=== PATIENT | female | born 1945 | race Caucasian/White ===

== ENCOUNTER 2018-08-30 13:37 | Inpatient (IN) ==
[2018-08-30 15:55] LABS: Basophils # 0.1 10*3/uL (0.0-0.2); Basophils % 0.7 % (0.0-0.8); Eosinophils # 0.1 10*3/uL (0.0-0.87); Eosinophils % 0.8 % (0.00-10.9); Hematocrit 41.2 VOL% (35.7-47.0); Hemoglobin 13.4 GM/DL (12.0-16.0); Immature Granulocytes % 0.6 %; Lymphocytes # 2.6 10*3/uL (1.4-4.0); Lymphocytes % 15.7 % (21.3-54.2); Mean Corpuscular HGB Conc 32.5 GM/DL (32-36); Mean Corpuscular Volume 80.9 FL (87-102); Mean Platelet Volume 11.5 FL (9.6-12.0); Monocytes % 8.7 % (1.7-12.7); Neutrophils % 73.5 % (38.7-73.9); Platelet Count 399 T/CUMM (130-400); Red Blood Count 5.09 MC/CUMM (3.8-5.5); Red Cell Distribution Width 13.3 % (9.3-17.3); White Blood Count 16.3 T/CUMM (4-12)
[2018-08-30 16:09] LABS: Albumin 3.6 G/DL (3.4-5.0); Bilirubin,Total 0.6 MG/DL (0.2-1.0); Calcium 8.9 MG/DL (8.5-10.1); Total Protein 6.5 G/DL (6.4-8.3)
[2018-08-30 16:40] LABS: Apearance,Urine Slightly Hazy (Clear); Bacteria,Urine Occasional /HPF (Few); Blood, Urine Negative (Negative); Glucose,Urine (UA) Negative (Negative); Hyaline Casts,Urine 11 /LPF (0-3); Ketones,Urine 20 mg/dL (Negative); Mucus,Urine Occasional /LPF (Occasional); Nitrite,Urine Negative (Negative); Protein,Urine >=500 MG/DL; Squamous Epithelial Cell,Urine Occasional /HPF (0-10); Urine Specific Gravity 1.022 (1.001-1.035); Urine Urobilinogen < 2.0 EU/DL (0.2-1.0); WBC,Urine 2 /HPF (0-6)
[2018-08-30 16:46] LABS: Bilirubin,Urine Small mg/dL (Negative); Urine Color Yellow (Yellow)
[2018-08-30] MEDS ORDERED: DEXTROSE 50% 25 GM/50 ML VIAL IV PRN ×3 (18:47→20:09)
[2018-08-30] MEDS ORDERED: GLUCAGON 1 MG VIAL IM PRN ×3 (18:47→20:09)
[2018-08-30] MEDS: ENOXAPARIN 40 MG/0.4 ML SYRINGE SUBCUT SCH (22:25)
[2018-08-30] MEDS: GABAPENTIN 300 MG CAPSULE PO SCH (22:25)
[2018-08-30] MEDS: PRAMIPEXOLE 1 MG TABLET PO SCH (22:25)
[2018-08-30] MEDS: INSULIN LISPRO 100 UNIT/ML SUBCUT SCH (22:26)
[2018-08-30] MEDS: DEXTROSE 5% NACL 0.45% 1,000 ML IV SCH (22:28)
[2018-08-31 05:49] LABS: Basophils # 0.1 10*3/uL (0.0-0.2); Basophils % 0.8 % (0.0-0.8); Eosinophils # 0.2 10*3/uL (0.0-0.87); Eosinophils % 1.7 % (0.00-10.9); Hemoglobin 11.1 GM/DL (12.0-16.0); Immature Granulocytes % 0.7 %; Immature Granulocytes Absolute 0.08 #; Lymphocytes # 2.1 10*3/uL (1.4-4.0); Lymphocytes % 19.3 % (21.3-54.2); Mean Corpuscular HGB Conc 31.7 GM/DL (32-36); Mean Corpuscular Volume 82.5 FL (87-102); Monocytes % 9.9 % (1.7-12.7); Neutrophils % 67.6 % (38.7-73.9); Platelet Count 334 T/CUMM (130-400); Red Blood Count 4.24 MC/CUMM (3.8-5.5); Red Cell Distribution Width 13.2 % (9.3-17.3); White Blood Count 10.7 T/CUMM (4-12)
[2018-08-31 06:30] LABS: Alanine Aminotransferase 14 U/L (13-56); Albumin 2.7 G/DL (3.4-5.0); Alkaline Phosphatase 72 U/L (45-117); Aspartate Amino Transferase 9 U/L (0-37); Bilirubin,Total < 0.39 MG/DL (0.2-1.0); Blood Urea Nitrogen 30 MG/DL (7-18); Calcium 8.1 MG/DL (8.5-10.1); Glucose 303 MG/DL (74-106); Osmolality,Calculated 291.7 MOS/KG (273-304); Total Protein 5.5 G/DL (6.4-8.3)
[2018-08-31] MEDS: DEXTROSE 5% NACL 0.45% 1,000 ML IV SCH ×2 (06:43→16:17)
[2018-08-31] MEDS ORDERED: LEVOTHYROXINE 125 MCG TABLET PO SCH (07:00)
[2018-08-31 08:16] LABS: Free T4 (Free Thyroxine) 0.74 NG/DL (0.76-1.46)
[2018-08-31] MEDS: INSULIN LISPRO 100 UNIT/ML SUBCUT SCH ×4 (09:47→21:04)
[2018-08-31] MEDS ORDERED: ALBUTEROL 2.5 MG/3 ML NEB RESP TX PRN (09:48)
[2018-08-31] MEDS: ASPIRIN CHEW 81 MG TABLET PO SCH (09:51)
[2018-08-31] MEDS: POTASSIUM CHLORIDE 20 MEQ TABLET PO PRN ×3 (09:52→16:13)
[2018-08-31] MEDS: amLODIPine 10 MG TABLET PO SCH (09:52)
[2018-08-31] MEDS: GABAPENTIN 300 MG CAPSULE PO SCH ×4 (09:52→20:22)
[2018-08-31] MEDS: MONTELUKAST 10 MG TABLET PO SCH (09:52)
[2018-08-31] MEDS: ESCITALOPRAM 10 MG TABLET PO SCH (09:52)
[2018-08-31] MEDS: cefTRIAXone 1,000 MG in SYRINGE 1 EACH IV SCH (11:15)
[2018-08-31] MEDS: AZITHROMYCIN INJ 500 MG in SODIUM CHLORIDE 0.9% 250 ML IV SCH (11:15)
[2018-08-31] MEDS: ONDANSETRON 4 MG/2 ML VIAL IV PRN ×2 (12:42→18:01)
[2018-08-31] MEDS: ALBUTEROL/IPRATROPIUM 3 ML NEB RESP TX SCH ×2 (13:20→18:54)
[2018-08-31] MEDS: ENOXAPARIN 40 MG/0.4 ML SYRINGE SUBCUT SCH (20:21)
[2018-08-31] MEDS: PRAMIPEXOLE 1 MG TABLET PO SCH (20:21)
[2018-09-01] MEDS: DEXTROSE 5% NACL 0.45% 1,000 ML IV SCH ×3 (00:20→22:01)
[2018-09-01] MEDS: ALBUTEROL/IPRATROPIUM 3 ML NEB RESP TX SCH ×4 (01:30→19:45)
[2018-09-01 04:29] LABS: Basophils # 0.1 10*3/uL (0.0-0.2); Basophils % 0.9 % (0.0-0.8); Eosinophils # 0.5 10*3/uL (0.0-0.87); Eosinophils % 4.8 % (0.00-10.9); Hematocrit 36.3 VOL% (35.7-47.0); Hemoglobin 11.4 GM/DL (12.0-16.0); Immature Granulocytes % 0.7 %; Immature Granulocytes Absolute 0.07 #; Lymphocytes # 2.8 10*3/uL (1.4-4.0); Lymphocytes % 29.6 % (21.3-54.2); Mean Corpuscular HGB Conc 31.4 GM/DL (32-36); Mean Corpuscular Volume 82.9 FL (87-102); Mean Platelet Volume 10.9 FL (9.6-12.0); Monocytes % 9.8 % (1.7-12.7); Neutrophils % 54.2 % (38.7-73.9); Platelet Count 302 T/CUMM (130-400); Red Blood Count 4.38 MC/CUMM (3.8-5.5); Red Cell Distribution Width 13.4 % (9.3-17.3); White Blood Count 9.4 T/CUMM (4-12)
[2018-09-01 04:54] LABS: Calcium 8.1 MG/DL (8.5-10.1); Osmolality,Calculated 287.3 MOS/KG (273-304)
[2018-09-01 04:57] LABS: Alanine Aminotransferase 18 U/L (13-56); Albumin 2.8 G/DL (3.4-5.0); Alkaline Phosphatase 77 U/L (45-117); Aspartate Amino Transferase 11 U/L (0-37); Bilirubin,Total < 0.39 MG/DL (0.2-1.0); Blood Urea Nitrogen 26 MG/DL (7-18); Calcium 8.1 MG/DL (8.5-10.1); Glucose 148 MG/DL (74-106); Osmolality,Calculated 288.3 MOS/KG (273-304); Total Protein 5.7 G/DL (6.4-8.3)
[2018-09-01] MEDS: LEVOTHYROXINE 137 MCG TABLET PO SCH (06:17)
[2018-09-01] MEDS: INSULIN LISPRO 100 UNIT/ML SUBCUT SCH ×4 (09:40→20:50)
[2018-09-01] MEDS: ONDANSETRON 4 MG/2 ML VIAL IV PRN ×3 (09:40→17:16)
[2018-09-01] MEDS: GABAPENTIN 300 MG CAPSULE PO SCH ×4 (09:41→20:49)
[2018-09-01] MEDS: ESCITALOPRAM 10 MG TABLET PO SCH (09:41)
[2018-09-01] MEDS: ASPIRIN CHEW 81 MG TABLET PO SCH (09:41)
[2018-09-01] MEDS: MONTELUKAST 10 MG TABLET PO SCH (09:41)
[2018-09-01] MEDS: amLODIPine 10 MG TABLET PO SCH (09:41)
[2018-09-01] MEDS: cefTRIAXone 1,000 MG in SYRINGE 1 EACH IV SCH (10:21)
[2018-09-01] MEDS: AZITHROMYCIN INJ 500 MG in SODIUM CHLORIDE 0.9% 250 ML IV SCH (10:21)
[2018-09-01] MEDS: CLORAZEPATE 3.75 MG TABLET PO SCH ×2 (16:03→20:49)
[2018-09-01] MEDS: ENOXAPARIN 40 MG/0.4 ML SYRINGE SUBCUT SCH (20:49)
[2018-09-01] MEDS: PRAMIPEXOLE 1 MG TABLET PO SCH (20:49)
[2018-09-02] MEDS: ALBUTEROL/IPRATROPIUM 3 ML NEB RESP TX SCH ×4 (00:14→19:45)
[2018-09-02] MEDS: LEVOTHYROXINE 137 MCG TABLET PO SCH (05:35)
[2018-09-02] MEDS: ONDANSETRON 4 MG/2 ML VIAL IV PRN ×3 (05:35→16:06)
[2018-09-02 06:21] LABS: Calcium 8.5 MG/DL (8.5-10.1); Osmolality,Calculated 292.5 MOS/KG (273-304)
[2018-09-02] MEDS: INSULIN LISPRO 100 UNIT/ML SUBCUT SCH ×5 (08:19→21:07)
[2018-09-02] MEDS: AZITHROMYCIN 250 MG TABLET PO SCH (08:21)
[2018-09-02] MEDS: MONTELUKAST 10 MG TABLET PO SCH (08:21)
[2018-09-02] MEDS: CLORAZEPATE 3.75 MG TABLET PO SCH ×2 (08:21→20:48)
[2018-09-02] MEDS: ESCITALOPRAM 10 MG TABLET PO SCH (08:21)
[2018-09-02] MEDS: GABAPENTIN 300 MG CAPSULE PO SCH ×4 (08:22→20:48)
[2018-09-02] MEDS: ASPIRIN CHEW 81 MG TABLET PO SCH (08:22)
[2018-09-02] MEDS: amLODIPine 10 MG TABLET PO SCH (08:22)
[2018-09-02] MEDS: cefTRIAXone 1,000 MG in SYRINGE 1 EACH IV SCH (10:09)
[2018-09-02] MEDS: LOSARTAN 50 MG TABLET PO SCH (10:10)
[2018-09-02] MEDS: POTASSIUM CHLORIDE 10 MEQ TABLET PO SCH (10:10)
[2018-09-02] MEDS: DEXTROSE 5% NACL 0.45% 1,000 ML IV SCH (11:15)
[2018-09-02] MEDS ORDERED: INSULIN GLARGINE 100 UNIT/ML SUBCUT SCH (14:30)
[2018-09-02] MEDS ORDERED: INSULIN LISPRO 100 UNIT/ML SUBCUT SCH (16:30)
[2018-09-02] MEDS: ENOXAPARIN 40 MG/0.4 ML SYRINGE SUBCUT SCH (20:48)
[2018-09-02] MEDS: PRAMIPEXOLE 1 MG TABLET PO SCH (20:48)
[2018-09-03] MEDS: ALBUTEROL/IPRATROPIUM 3 ML NEB RESP TX SCH ×2 (00:50→06:50)
[2018-09-03 05:57] LABS: Calcium 8.5 MG/DL (8.5-10.1); Osmolality,Calculated 280.5 MOS/KG (273-304)
[2018-09-03] MEDS: LEVOTHYROXINE 137 MCG TABLET PO SCH (06:16)
[2018-09-03] MEDS: ONDANSETRON 4 MG/2 ML VIAL IV PRN (07:45)
[2018-09-03] MEDS: INSULIN LISPRO 100 UNIT/ML SUBCUT SCH ×4 (07:46→13:05)
[2018-09-03] MEDS: CLORAZEPATE 3.75 MG TABLET PO SCH (09:20)
[2018-09-03] MEDS: ESCITALOPRAM 10 MG TABLET PO SCH (09:21)
[2018-09-03] MEDS: MONTELUKAST 10 MG TABLET PO SCH (09:21)
[2018-09-03] MEDS: POTASSIUM CHLORIDE 10 MEQ TABLET PO SCH (09:21)
[2018-09-03] MEDS: AZITHROMYCIN 250 MG TABLET PO SCH (09:22)
[2018-09-03] MEDS: POTASSIUM CHLORIDE 20 MEQ TABLET PO PRN (09:22)
[2018-09-03] MEDS: GABAPENTIN 300 MG CAPSULE PO SCH (09:22)
[2018-09-03] MEDS: ASPIRIN CHEW 81 MG TABLET PO SCH (09:23)
[2018-09-03] MEDS: amLODIPine 10 MG TABLET PO SCH (09:23)
[2018-09-03] MEDS: LOSARTAN 50 MG TABLET PO SCH (09:23)
[2018-09-03] MEDS: cefTRIAXone 1,000 MG in SYRINGE 1 EACH IV SCH (09:24)
[2018-09-03] MEDS ORDERED: CLORAZEPATE 3.75 MG TABLET PO PRN (10:53)
[2018-09-03 12:11] VITALS: BP 136/91
== END 2018-09-03 13:20 | disposition home health service (06) | DRG 682 ==
LOC: N.ED 13:37 → SUATTDRO 17:45 → N.EDINP 17:45 → N.2E 19:10
PROVIDERS: ADMIT Internal Medicine Nephrology; ATTEND Internal Medicine

== ENCOUNTER 2019-08-03 11:19 | Inpatient (IN) ==
[2019-08-03] MEDS ORDERED: HYDROXYCHLOROQUINE 200 MG TABLET PO STA (12:13)
[2019-08-03] MEDS ORDERED: AZITHROMYCIN 250 MG TABLET PO STA (12:13)
[2019-08-03 12:57] LABS: Hematocrit 31.4 VOL% (35.7-47.0); Hemoglobin 9.8 GM/DL (12.0-16.0); Immature Granulocytes % 0.4 %; Immature Granulocytes Absolute 0.02 #; Lymphocytes # 0.4 10*3/uL (1.4-4.0); Lymphocytes % 9.1 % (21.3-54.2); Mean Corpuscular HGB Conc 31.2 GM/DL (32-36); Mean Corpuscular Volume 82.6 FL (87-102); Mean Platelet Volume 11.3 FL (9.6-12.0); Monocytes % 6.9 % (1.7-12.7); Neutrophils % 83.6 % (38.7-73.9); Platelet Count 291 T/CUMM (130-400); Red Cell Distribution Width 16.9 % (9.3-17.3); White Blood Count 4.5 T/CUMM (4-12)
[2019-08-03] MEDS ORDERED: ACETAMINOPHEN 500 MG TABLET PO STA (13:00)
[2019-08-03] MEDS ORDERED: ACETAMINOPHEN 500 MG TABLET ONE (13:07)
[2019-08-03 13:19] LABS: Alanine Aminotransferase 155 U/L (13-56); Albumin 1.4 G/DL (3.4-5.0); Alkaline Phosphatase 62 U/L (45-117); Amylase 13 U/L (25-115); Aspartate Amino Transferase 125 U/L (0-37); Blood Urea Nitrogen 58 MG/DL (7-18); Calcium 7.3 MG/DL (8.5-10.1); Estimated Glom Filtration Rate 30 ML/MIN; Ferritin 365.7 ng/ml (8-252); Glucose 399 MG/DL (74-106); Osmolality,Calculated 285.4 MOS/KG (273-304); Total Protein 5.7 G/DL (6.4-8.3)
[2019-08-03 13:20] LABS: Troponin I 0.114 NG/ML (0.00-0.045)
[2019-08-03 13:31] LABS: Apearance,Urine CLOUDY (Clear); Bacteria,Urine Many /HPF (Few); Bilirubin,Urine Negative (Negative); Blood, Urine Small mg/dL (Negative); Glucose,Urine (UA) 50 mg/dL (Negative); Ketones,Urine 5 mg/dL (Negative); Nitrite,Urine Negative (Negative); Protein,Urine 100 MG/DL; RBC,Urine 24 /HPF (0-4); Urine Color Amber (Yellow); Urine Specific Gravity 1.017 (1.001-1.035); Urine Urobilinogen < 2.0 EU/DL (0.2-1.0); WBC,Urine 1097 /HPF (0-6)
[2019-08-03 13:36] LABS: INR 1.2; PT Patient Result 12.5 SECS (9.8-11.9)
[2019-08-03] MEDS ORDERED: DEXTROSE 10% 250 ML BAG IV PRN (14:14)
[2019-08-03] MEDS ORDERED: guaiFENesin/DM ER 600-30 MG TABLET PO PRN (14:14)
[2019-08-03 14:42] LABS: Band Neutrophils 2 % (0-10); Lymphocytes 5 % (20-55); Platelet Estimate Normal; Segmented Neutrophils 90 % (50-85); Total Cells Counted 100
[2019-08-03 14:58] LABS: VLDL CHOLESTEROL 41.2 MG/DL
[2019-08-03] MEDS ORDERED: cefTRIAXone 1,000 MG in SYRINGE 1 EACH IV SCH (15:00)
[2019-08-03] MEDS: SODIUM CHLORIDE 0.9% 1,000 ML IV SCH (15:28)
[2019-08-03] MEDS: INSULIN REGULAR 100 UNIT/ML SUBCUT SCH ×2 (16:13→21:59)
[2019-08-03] MEDS: CEFEPIME 1,000 MG in SODIUM CHLORIDE 0.9% 100 ML IV SCH (18:28)
[2019-08-03] MEDS: ENOXAPARIN 40 MG/0.4 ML SYRINGE SUBCUT SCH (21:55)
[2019-08-03] MEDS: ONDANSETRON 4 MG/2 ML VIAL IV PRN (21:55)
[2019-08-03] MEDS: ALBUTEROL INHALER 18 GM INH SCH (22:31)
[2019-08-03] MEDS: traZODone 50 MG TABLET PO PRN (22:32)
[2019-08-04] MEDS: SODIUM CHLORIDE 0.9% 1,000 ML IV SCH ×2 (00:34→20:59)
[2019-08-04] MEDS: ALBUTEROL INHALER 18 GM INH SCH ×4 (00:35→19:12)
[2019-08-04] MEDS: CEFEPIME 1,000 MG in SODIUM CHLORIDE 0.9% 100 ML IV SCH ×4 (01:00→21:00)
[2019-08-04 05:54] LABS: Basophils % 0.3 % (0.0-0.8); Eosinophils # 0.1 10*3/uL (0.0-0.87); Eosinophils % 3.3 % (0.00-10.9); Hematocrit 26.3 VOL% (35.7-47.0); Hemoglobin 7.6 GM/DL (12.0-16.0); Immature Granulocytes % 1.2 %; Immature Granulocytes Absolute 0.04 #; Lymphocytes # 0.5 10*3/uL (1.4-4.0); Lymphocytes % 14.7 % (21.3-54.2); Mean Corpuscular HGB Conc 28.9 GM/DL (32-36); Mean Corpuscular Volume 88.9 FL (87-102); Mean Platelet Volume 10.9 FL (9.6-12.0); Monocytes % 9.6 % (1.7-12.7); Neutrophils % 70.9 % (38.7-73.9); Platelet Count 193 T/CUMM (130-400); Red Blood Count 2.96 MC/CUMM (3.8-5.5); Red Cell Distribution Width 17.2 % (9.3-17.3); White Blood Count 3.3 T/CUMM (4-12)
[2019-08-04 06:11] LABS: Osmolality,Calculated 286.8 MOS/KG (273-304)
[2019-08-04 06:22] LABS: Calcium 5.5 MG/DL (8.5-10.1)
[2019-08-04] MEDS ORDERED: MAGNESIUM SULF RIDER 2 GM in PREMIX 1 EACH IV PRN (08:10)
[2019-08-04] MEDS ORDERED: MAGNESIUM SULF RIDER 4 GM in PREMIX 1 EACH IV PRN (08:10)
[2019-08-04] MEDS ORDERED: HYDROXYCHLOROQUINE 200 MG TABLET PO ONE (09:00)
[2019-08-04 09:26] LABS: Anisocytosis 1+; Band Neutrophils 12 % (0-10); Eosinophils 3 % (0-10); Lymphocytes 14 % (20-55); Macrocytosis 1+; Metamyelocytes 1 %; Myelocytes 3 %; Platelet Estimate Normal; Segmented Neutrophils 63 % (50-85); Total Cells Counted 100
[2019-08-04] MEDS: AZITHROMYCIN 250 MG TABLET PO SCH (09:50)
[2019-08-04] MEDS: INSULIN REGULAR 100 UNIT/ML SUBCUT SCH ×4 (09:50→20:58)
[2019-08-04] MEDS: ONDANSETRON 4 MG/2 ML VIAL IV PRN ×2 (09:50→17:20)
[2019-08-04] MEDS ORDERED: CALCIUM GLUCONATE 1,000 MG in SODIUM CHLORIDE 0.9% 100 ML IV ONE (10:00)
[2019-08-04] MEDS ORDERED: FLUTICASONE 50 MCG NASAL SPRAY 16 GM BOTTLE BOTH NARES PRN (13:30)
[2019-08-04] MEDS ORDERED: NON-FORMULARY MEDICATION (Albuterol Sulfate 2 PUFF) INH PRN (13:30)
[2019-08-04] MEDS: GABAPENTIN 300 MG CAPSULE PO SCH ×2 (17:20→20:57)
[2019-08-04] MEDS: INSULIN GLARGINE 100 UNIT/ML SUBCUT SCH (18:37)
[2019-08-04] MEDS: ENOXAPARIN 40 MG/0.4 ML SYRINGE SUBCUT SCH (20:56)
[2019-08-04] MEDS: PANTOPRAZOLE 40 MG TABLET PO SCH (20:57)
[2019-08-04] MEDS: AMITRIPTYLINE 25 MG TABLET PO SCH (20:57)
[2019-08-04] MEDS: HYDROXYCHLOROQUINE 200 MG TABLET PO SCH (20:57)
[2019-08-04] MEDS: AZELASTINE NASAL 137 MCG/SPRAY 30 ML BOTTLE BOTH NARES SCH (20:58)
[2019-08-04] MEDS: GLYCOPYRROLATE FORMOTEROL INH SCH (21:02)
[2019-08-05] MEDS: ALBUTEROL INHALER 18 GM INH SCH ×4 (01:00→18:32)
[2019-08-05] MEDS: ONDANSETRON 4 MG/2 ML VIAL IV PRN ×4 (02:12→21:00)
[2019-08-05] MEDS: CEFEPIME 1,000 MG in SODIUM CHLORIDE 0.9% 100 ML IV SCH ×2 (05:00→09:11)
[2019-08-05] MEDS: LEVOTHYROXINE 137 MCG TABLET PO SCH (06:39)
[2019-08-05 07:36] LABS: Calcium 8.1 MG/DL (8.5-10.1); Osmolality,Calculated 280.2 MOS/KG (273-304)
[2019-08-05 07:45] LABS: Basophils % 0.4 % (0.0-0.8); Eosinophils # 0.5 10*3/uL (0.0-0.87); Eosinophils % 10.5 % (0.00-10.9); Hematocrit 33.4 VOL% (35.7-47.0); Immature Granulocytes % 0.7 %; Immature Granulocytes Absolute 0.03 #; Lymphocytes # 0.9 10*3/uL (1.4-4.0); Lymphocytes % 19.8 % (21.3-54.2); Mean Corpuscular HGB Conc 30.8 GM/DL (32-36); Mean Corpuscular Volume 83.1 FL (87-102); Mean Platelet Volume 11.4 FL (9.6-12.0); Monocytes % 8.2 % (1.7-12.7); Neutrophils % 60.4 % (38.7-73.9)
[2019-08-05 07:46] LABS: Red Blood Count 4.02 MC/CUMM (3.8-5.5); White Blood Count 4.5 T/CUMM (4-12)
[2019-08-05 07:47] LABS: Hemoglobin 10.3 GM/DL (12.0-16.0); Platelet Count 267 T/CUMM (130-400)
[2019-08-05 08:04] LABS: Band Neutrophils 6 % (0-10); Eosinophils 14 % (0-10); Lymphocytes 16 % (20-55); Nucleated Red Blood Cells 1 (0-5); Platelet Estimate Normal; Segmented Neutrophils 54 % (50-85); Total Cells Counted 100
[2019-08-05 08:05] LABS: Anisocytosis Slight
[2019-08-05] MEDS: ASPIRIN CHEW 81 MG TABLET PO SCH (08:49)
[2019-08-05] MEDS: AZITHROMYCIN 250 MG TABLET PO SCH (08:49)
[2019-08-05] MEDS: PANTOPRAZOLE 40 MG TABLET PO SCH ×2 (08:50→21:00)
[2019-08-05] MEDS: HYDROXYCHLOROQUINE 200 MG TABLET PO SCH (08:50)
[2019-08-05] MEDS: GABAPENTIN 300 MG CAPSULE PO SCH ×3 (08:50→21:00)
[2019-08-05] MEDS: MONTELUKAST 10 MG TABLET PO SCH (08:50)
[2019-08-05] MEDS: ARIPiprazole 10 MG TABLET PO SCH (08:51)
[2019-08-05] MEDS: PHENOL 1.4% THROAT SPRAY 177 ML BOTTLE PO PRN (08:51)
[2019-08-05] MEDS: ROSUVASTATIN 20 MG TABLET PO SCH (09:03)
[2019-08-05] MEDS: AZELASTINE NASAL 137 MCG/SPRAY 30 ML BOTTLE BOTH NARES SCH ×2 (09:03→22:36)
[2019-08-05] MEDS: GLYCOPYRROLATE FORMOTEROL INH SCH ×2 (09:04→22:37)
[2019-08-05] MEDS: INSULIN REGULAR 100 UNIT/ML SUBCUT SCH ×4 (09:11→22:37)
[2019-08-05] MEDS: INSULIN GLARGINE 100 UNIT/ML SUBCUT SCH (15:24)
[2019-08-05] MEDS: MEROPENEM 500 MG in SODIUM CHLORIDE 0.9% 100 ML IV SCH ×2 (15:24→21:00)
[2019-08-05] MEDS: SODIUM CHLORIDE 0.9% 1,000 ML IV SCH (17:38)
[2019-08-05] MEDS: ENOXAPARIN 40 MG/0.4 ML SYRINGE SUBCUT SCH (21:00)
[2019-08-05] MEDS: AMITRIPTYLINE 25 MG TABLET PO SCH (21:00)
[2019-08-05] MEDS: traZODone 50 MG TABLET PO PRN (21:00)
[2019-08-06] MEDS: ALBUTEROL INHALER 18 GM INH SCH ×4 (00:20→22:01)
[2019-08-06] MEDS: ONDANSETRON 4 MG/2 ML VIAL IV PRN ×3 (00:50→21:57)
[2019-08-06] MEDS: hydrALAZINE 20 MG/1 ML VIAL IV PRN ×2 (03:30→16:35)
[2019-08-06] MEDS: PHENOL 1.4% THROAT SPRAY 177 ML BOTTLE PO PRN (03:30)
[2019-08-06] MEDS: MEROPENEM 500 MG in SODIUM CHLORIDE 0.9% 100 ML IV SCH ×3 (06:00→21:58)
[2019-08-06] MEDS: LEVOTHYROXINE 137 MCG TABLET PO SCH (06:00)
[2019-08-06 06:10] LABS: Basophils % 0.1 % (0.0-0.8); Eosinophils # 0.7 10*3/uL (0.0-0.87); Eosinophils % 8.5 % (0.00-10.9); Hematocrit 37.1 VOL% (35.7-47.0); Hemoglobin 11.4 GM/DL (12.0-16.0); Immature Granulocytes % 0.4 %; Immature Granulocytes Absolute 0.03 #; Lymphocytes # 0.9 10*3/uL (1.4-4.0); Lymphocytes % 11.4 % (21.3-54.2); Mean Corpuscular HGB Conc 30.7 GM/DL (32-36); Mean Corpuscular Volume 84.1 FL (87-102); Mean Platelet Volume 10.6 FL (9.6-12.0); Monocytes % 6.5 % (1.7-12.7); Neutrophils % 73.1 % (38.7-73.9); Platelet Count 307 T/CUMM (130-400); Red Blood Count 4.41 MC/CUMM (3.8-5.5); Red Cell Distribution Width 16.7 % (9.3-17.3)
[2019-08-06 06:23] LABS: Calcium 7.7 MG/DL (8.5-10.1)
[2019-08-06 06:35] LABS: Band Neutrophils 2 % (0-10); Eosinophils 7 % (0-10); Hypochromasia 1+; Lymphocytes 8 % (20-55); Microcytosis 1+; Ovalocytes Slight; Segmented Neutrophils 77 % (50-85); Total Cells Counted 100
[2019-08-06 06:36] LABS: Platelet Estimate Normal
[2019-08-06] MEDS: ASPIRIN CHEW 81 MG TABLET PO SCH (08:17)
[2019-08-06] MEDS: GABAPENTIN 300 MG CAPSULE PO SCH ×3 (08:17→21:57)
[2019-08-06] MEDS: PANTOPRAZOLE 40 MG TABLET PO SCH ×2 (08:18→21:57)
[2019-08-06] MEDS: ROSUVASTATIN 20 MG TABLET PO SCH (08:18)
[2019-08-06] MEDS: MONTELUKAST 10 MG TABLET PO SCH (08:18)
[2019-08-06] MEDS: BENZONATATE 100 MG CAPSULE PO PRN (08:18)
[2019-08-06] MEDS: GLYCOPYRROLATE FORMOTEROL INH SCH ×2 (08:18→21:57)
[2019-08-06] MEDS: AZELASTINE NASAL 137 MCG/SPRAY 30 ML BOTTLE BOTH NARES SCH ×2 (08:18→22:50)
[2019-08-06] MEDS: AZITHROMYCIN 250 MG TABLET PO SCH (09:09)
[2019-08-06] MEDS: ARIPiprazole 10 MG TABLET PO SCH (09:09)
[2019-08-06] MEDS: INSULIN REGULAR 100 UNIT/ML SUBCUT SCH ×4 (09:30→20:36)
[2019-08-06] MEDS: LOSARTAN 50 MG TABLET PO SCH (11:28)
[2019-08-06] MEDS: INSULIN GLARGINE 100 UNIT/ML SUBCUT SCH (20:36)
[2019-08-06] MEDS: traZODone 50 MG TABLET PO PRN (21:56)
[2019-08-06] MEDS: AMITRIPTYLINE 25 MG TABLET PO SCH (21:57)
[2019-08-06] MEDS: ENOXAPARIN 40 MG/0.4 ML SYRINGE SUBCUT SCH (21:58)
[2019-08-07] MEDS: ALBUTEROL INHALER 18 GM INH SCH ×4 (01:16→21:05)
[2019-08-07] MEDS: ONDANSETRON 4 MG/2 ML VIAL IV PRN ×3 (05:07→21:05)
[2019-08-07] MEDS: MEROPENEM 500 MG in SODIUM CHLORIDE 0.9% 100 ML IV SCH ×3 (05:08→21:45)
[2019-08-07 05:14] LABS: Basophils % 0.4 % (0.0-0.8); Eosinophils # 0.8 10*3/uL (0.0-0.87); Eosinophils % 10.9 % (0.00-10.9); Hematocrit 33.7 VOL% (35.7-47.0); Hemoglobin 10.8 GM/DL (12.0-16.0); Immature Granulocytes % 0.7 %; Immature Granulocytes Absolute 0.05 #; Lymphocytes # 1.3 10*3/uL (1.4-4.0); Lymphocytes % 19.2 % (21.3-54.2); Mean Corpuscular Volume 80.2 FL (87-102); Mean Platelet Volume 10.5 FL (9.6-12.0); Monocytes % 10.2 % (1.7-12.7); Neutrophils % 58.6 % (38.7-73.9); Platelet Count 313 T/CUMM (130-400); Red Cell Distribution Width 16.5 % (9.3-17.3)
[2019-08-07 06:07] LABS: Band Neutrophils 1 % (0-10); Eosinophils 6 % (0-10); Hypochromasia 1+; Lymphocytes 10 % (20-55); Microcytosis 1+; Platelet Estimate Adequate; Segmented Neutrophils 78 % (50-85); Total Cells Counted 100
[2019-08-07] MEDS: LEVOTHYROXINE 137 MCG TABLET PO SCH (06:20)
[2019-08-07] MEDS: INSULIN REGULAR 100 UNIT/ML SUBCUT SCH ×4 (09:09→21:44)
[2019-08-07] MEDS ORDERED: TUBERCULIN SKIN TEST 0.1 ML SYRINGE INTRADERM ONE (09:26)
[2019-08-07] MEDS: GABAPENTIN 300 MG CAPSULE PO SCH ×3 (10:05→21:05)
[2019-08-07] MEDS: ROSUVASTATIN 20 MG TABLET PO SCH (10:05)
[2019-08-07] MEDS: AZITHROMYCIN 250 MG TABLET PO SCH (10:05)
[2019-08-07] MEDS: ASPIRIN CHEW 81 MG TABLET PO SCH (10:05)
[2019-08-07] MEDS: NEBIVOLOL 10 MG TABLET PO SCH (10:05)
[2019-08-07] MEDS: GLYCOPYRROLATE FORMOTEROL INH SCH ×2 (10:05→21:05)
[2019-08-07] MEDS: LOSARTAN 50 MG TABLET PO SCH (10:05)
[2019-08-07] MEDS: MONTELUKAST 10 MG TABLET PO SCH (10:05)
[2019-08-07] MEDS: PANTOPRAZOLE 40 MG TABLET PO SCH ×2 (10:05→21:05)
[2019-08-07] MEDS: ARIPiprazole 10 MG TABLET PO SCH (10:05)
[2019-08-07] MEDS: busPIRone 5 MG TABLET PO PRN ×2 (10:05→21:05)
[2019-08-07] MEDS: AZELASTINE NASAL 137 MCG/SPRAY 30 ML BOTTLE BOTH NARES SCH ×2 (10:14→21:05)
[2019-08-07] MEDS: SODIUM CHLORIDE 0.9% 1,000 ML IV SCH ×2 (10:35→10:52)
[2019-08-07 14:41] LABS: Calcium 7.9 MG/DL (8.5-10.1); Osmolality,Calculated 273.8 MOS/KG (273-304)
[2019-08-07] MEDS: traZODone 50 MG TABLET PO PRN (21:05)
[2019-08-07] MEDS: BENZONATATE 100 MG CAPSULE PO PRN (21:05)
[2019-08-07] MEDS: ENOXAPARIN 40 MG/0.4 ML SYRINGE SUBCUT SCH (21:05)
[2019-08-07] MEDS: AMITRIPTYLINE 25 MG TABLET PO SCH (21:05)
[2019-08-07] MEDS: INSULIN GLARGINE 100 UNIT/ML SUBCUT SCH (21:44)
[2019-08-08] MEDS: ALBUTEROL INHALER 18 GM INH SCH ×4 (01:11→20:00)
[2019-08-08 03:42] LABS: Basophils # 0.1 10*3/uL (0.0-0.2); Basophils % 0.8 % (0.0-0.8); Eosinophils % 0.1 % (0.00-10.9); Hematocrit 26.2 VOL% (35.7-47.0); Hemoglobin 8.5 GM/DL (12.0-16.0); Immature Granulocytes % 5.1 %; Immature Granulocytes Absolute 0.75 #; Lymphocytes # 1.3 10*3/uL (1.4-4.0); Lymphocytes % 8.8 % (21.3-54.2); Mean Corpuscular HGB Conc 32.4 GM/DL (32-36); Mean Corpuscular Volume 84.8 FL (87-102); Mean Platelet Volume 13.2 FL (9.6-12.0); Monocytes % 4.1 % (1.7-12.7); Neutrophils % 81.1 % (38.7-73.9); Platelet Count 277 T/CUMM (130-400); Red Blood Count 3.09 MC/CUMM (3.8-5.5); Red Cell Distribution Width 18.2 % (9.3-17.3); White Blood Count 14.7 T/CUMM (4-12)
[2019-08-08 03:50] LABS: Calcium 9.2 MG/DL (8.5-10.1); Osmolality,Calculated 282.8 MOS/KG (273-304)
[2019-08-08 04:36] LABS: Band Neutrophils 6 % (0-10); Lymphocytes 8 % (20-55); Nucleated Red Blood Cells 2 (0-5); Segmented Neutrophils 77 % (50-85); Total Cells Counted 100
[2019-08-08 04:37] LABS: Hypochromasia 1+; Microcytosis 1+; Platelet Estimate Adequate
[2019-08-08] MEDS: MEROPENEM 500 MG in SODIUM CHLORIDE 0.9% 100 ML IV SCH ×3 (05:10→21:18)
[2019-08-08] MEDS: SODIUM CHLORIDE 0.9% 1,000 ML IV SCH (05:10)
[2019-08-08] MEDS: busPIRone 5 MG TABLET PO PRN ×2 (05:10→18:30)
[2019-08-08] MEDS: LEVOTHYROXINE 137 MCG TABLET PO SCH (06:00)
[2019-08-08] MEDS: INSULIN REGULAR 100 UNIT/ML SUBCUT SCH ×4 (08:10→20:46)
[2019-08-08 08:58] LABS: Albumin 1.5 G/DL (3.4-5.0); Bilirubin,Total 0.5 MG/DL (0.2-1.0); Calcium 7.5 MG/DL (8.5-10.1); Total Protein 6.3 G/DL (6.4-8.3)
[2019-08-08] MEDS ORDERED: SODIUM POLYSTYRENE SULFATE 15 GM/60 ML BOTTLE PO ONE (09:00)
[2019-08-08] MEDS: ARIPiprazole 10 MG TABLET PO SCH (10:52)
[2019-08-08] MEDS: NEBIVOLOL 10 MG TABLET PO SCH (10:52)
[2019-08-08] MEDS: ASPIRIN CHEW 81 MG TABLET PO SCH (10:53)
[2019-08-08] MEDS: MONTELUKAST 10 MG TABLET PO SCH (10:55)
[2019-08-08] MEDS: GABAPENTIN 300 MG CAPSULE PO SCH ×3 (10:55→20:00)
[2019-08-08] MEDS: ONDANSETRON 4 MG/2 ML VIAL IV PRN ×2 (10:55→20:40)
[2019-08-08] MEDS: GLYCOPYRROLATE FORMOTEROL INH SCH ×2 (10:55→20:00)
[2019-08-08] MEDS: LOSARTAN 50 MG TABLET PO SCH (10:55)
[2019-08-08] MEDS: ROSUVASTATIN 20 MG TABLET PO SCH (10:55)
[2019-08-08] MEDS: PANTOPRAZOLE 40 MG TABLET PO SCH ×2 (10:55→20:00)
[2019-08-08] MEDS: POTASSIUM CHLORIDE 20 MEQ TABLET PO PRN ×3 (11:28→17:40)
[2019-08-08] MEDS: ALPRAZolam 0.5 MG TABLET PO PRN ×2 (11:30→20:00)
[2019-08-08] MEDS: AZELASTINE NASAL 137 MCG/SPRAY 30 ML BOTTLE BOTH NARES SCH ×2 (11:33→20:00)
[2019-08-08] MEDS: traZODone 50 MG TABLET PO PRN (20:00)
[2019-08-08] MEDS: BENZONATATE 100 MG CAPSULE PO PRN (20:00)
[2019-08-08] MEDS: AMITRIPTYLINE 25 MG TABLET PO SCH (20:00)
[2019-08-08] MEDS: ENOXAPARIN 40 MG/0.4 ML SYRINGE SUBCUT SCH (20:00)
[2019-08-08] MEDS: PRAMIPEXOLE 1 MG TABLET PO SCH (20:40)
[2019-08-08] MEDS: HydrOXYzine PAMOATE 25 MG CAPSULE PO SCH (20:40)
[2019-08-08] MEDS: INSULIN GLARGINE 100 UNIT/ML SUBCUT SCH (20:40)
[2019-08-09] MEDS: SODIUM CHLORIDE 0.9% 1,000 ML IV SCH ×2 (00:08→20:34)
[2019-08-09] MEDS: ALBUTEROL INHALER 18 GM INH SCH ×4 (00:10→20:59)
[2019-08-09] MEDS: busPIRone 5 MG TABLET PO PRN ×2 (04:10→15:13)
[2019-08-09] MEDS: MEROPENEM 500 MG in SODIUM CHLORIDE 0.9% 100 ML IV SCH ×3 (05:10→20:59)
[2019-08-09] MEDS: LEVOTHYROXINE 137 MCG TABLET PO SCH (06:05)
[2019-08-09] MEDS: ROSUVASTATIN 20 MG TABLET PO SCH (09:05)
[2019-08-09] MEDS: LOSARTAN 50 MG TABLET PO SCH (09:05)
[2019-08-09] MEDS: GLYCOPYRROLATE FORMOTEROL INH SCH ×2 (09:05→20:59)
[2019-08-09] MEDS: ARIPiprazole 10 MG TABLET PO SCH (09:05)
[2019-08-09] MEDS: AZELASTINE NASAL 137 MCG/SPRAY 30 ML BOTTLE BOTH NARES SCH ×2 (09:05→20:59)
[2019-08-09] MEDS: MONTELUKAST 10 MG TABLET PO SCH (09:05)
[2019-08-09] MEDS: ASPIRIN CHEW 81 MG TABLET PO SCH (09:05)
[2019-08-09] MEDS: GABAPENTIN 300 MG CAPSULE PO SCH ×3 (09:05→20:33)
[2019-08-09] MEDS: PANTOPRAZOLE 40 MG TABLET PO SCH ×2 (09:05→20:33)
[2019-08-09] MEDS: NEBIVOLOL 10 MG TABLET PO SCH (09:05)
[2019-08-09] MEDS: ALPRAZolam 0.5 MG TABLET PO PRN ×2 (09:13→20:55)
[2019-08-09] MEDS: INSULIN REGULAR 100 UNIT/ML SUBCUT SCH ×4 (09:16→20:48)
[2019-08-09] MEDS: ENOXAPARIN 40 MG/0.4 ML SYRINGE SUBCUT SCH (20:33)
[2019-08-09] MEDS: PRAMIPEXOLE 1 MG TABLET PO SCH (20:33)
[2019-08-09] MEDS: HydrOXYzine PAMOATE 25 MG CAPSULE PO SCH (20:33)
[2019-08-09] MEDS: AMITRIPTYLINE 25 MG TABLET PO SCH (20:33)
[2019-08-09] MEDS: traZODone 50 MG TABLET PO PRN (20:33)
[2019-08-09] MEDS: INSULIN GLARGINE 100 UNIT/ML SUBCUT SCH (20:47)
[2019-08-09] MEDS: ONDANSETRON 4 MG/2 ML VIAL IV PRN (20:47)
[2019-08-10] MEDS: ALBUTEROL INHALER 18 GM INH SCH ×4 (00:12→21:16)
[2019-08-10] MEDS: MEROPENEM 500 MG in SODIUM CHLORIDE 0.9% 100 ML IV SCH (06:04)
[2019-08-10] MEDS: LEVOTHYROXINE 137 MCG TABLET PO SCH (06:05)
[2019-08-10 07:01] LABS: Basophils % 0.5 % (0.0-0.8); Hemoglobin 9.7 GM/DL (12.0-16.0); Immature Granulocytes % 0.5 %; Immature Granulocytes Absolute 0.04 #; Lymphocytes % 11.3 % (21.3-54.2); Mean Corpuscular HGB Conc 29.4 GM/DL (32-36); Mean Corpuscular Volume 85.7 FL (87-102); Mean Platelet Volume 12.1 FL (9.6-12.0); Monocytes % 10.2 % (1.7-12.7); Neutrophils % 66.5 % (38.7-73.9); Platelet Count 192 T/CUMM (130-400); Red Blood Count 3.85 MC/CUMM (3.8-5.5); Red Cell Distribution Width 16.8 % (9.3-17.3); White Blood Count 8.6 T/CUMM (4-12)
[2019-08-10 07:45] LABS: Alanine Aminotransferase 69 U/L (13-56); Albumin 1.3 G/DL (3.4-5.0); Alkaline Phosphatase 77 U/L (45-117); Aspartate Amino Transferase 47 U/L (0-37); Bilirubin,Total < 0.39 MG/DL (0.2-1.0); Blood Urea Nitrogen 16 MG/DL (7-18); Calcium 7.3 MG/DL (8.5-10.1); Estimated Glom Filtration Rate 95 ML/MIN; Glucose 69 MG/DL (74-106); Osmolality,Calculated 273.7 MOS/KG (273-304); Total Protein 5.3 G/DL (6.4-8.3)
[2019-08-10 07:50] LABS: Band Neutrophils 5 % (0-10); Eosinophils 5 % (0-10); Hypochromasia 1+; Lymphocytes 13 % (20-55); Segmented Neutrophils 69 % (50-85); Total Cells Counted 100
[2019-08-10 07:51] LABS: Microcytosis 1+
[2019-08-10] MEDS: INSULIN REGULAR 100 UNIT/ML SUBCUT SCH ×4 (08:14→21:09)
[2019-08-10] MEDS: ASPIRIN CHEW 81 MG TABLET PO SCH (09:39)
[2019-08-10] MEDS: PANTOPRAZOLE 40 MG TABLET PO SCH ×2 (09:39→21:15)
[2019-08-10] MEDS: MONTELUKAST 10 MG TABLET PO SCH (09:39)
[2019-08-10] MEDS: ROSUVASTATIN 20 MG TABLET PO SCH (09:39)
[2019-08-10] MEDS: ARIPiprazole 10 MG TABLET PO SCH (09:39)
[2019-08-10] MEDS: NEBIVOLOL 10 MG TABLET PO SCH (09:39)
[2019-08-10] MEDS: AZELASTINE NASAL 137 MCG/SPRAY 30 ML BOTTLE BOTH NARES SCH ×2 (09:39→21:16)
[2019-08-10] MEDS: GABAPENTIN 300 MG CAPSULE PO SCH ×3 (09:39→21:15)
[2019-08-10] MEDS: LOSARTAN 50 MG TABLET PO SCH (09:39)
[2019-08-10] MEDS: GLYCOPYRROLATE FORMOTEROL INH SCH ×2 (09:39→21:16)
[2019-08-10 12:41] LABS: Hepatitis B Core IgM Quant 0.26 Index; Hepatitis B Surface Ag Quant 0.13 Index; Hepatitis B Surface Ag Result Negative (Negative); Hepatitis C Virus Ab Quant 0.09 Index; Hepatitis C Virus Ab Result Negative (Negative)
[2019-08-10] MEDS: ONDANSETRON 4 MG/2 ML VIAL IV PRN ×2 (17:07→21:41)
[2019-08-10] MEDS: hydrALAZINE 20 MG/1 ML VIAL IV PRN (17:07)
[2019-08-10] MEDS ORDERED: FUROSEMIDE 40 MG/4 ML VIAL IV ONE (17:21)
[2019-08-10 17:52] LABS: ABG Base Excess -0.7 MMOL/L (-2.5-2.5); ABG HCO3 23.8 MMOL/L (20-26); ABG Oxygen Saturation 93.8 % (95-100); ABG PCO2 39.4 MM HG (35-48); ABG PH 7.393 (7.35-7.45); ABG PO2 68.8 MM HG (80-95); ABG TCO2 21.7 MMOL/L (23-27)
[2019-08-10] MEDS: SODIUM CHLORIDE 0.9% 1,000 ML IV SCH (18:17)
[2019-08-10] MEDS: AMITRIPTYLINE 25 MG TABLET PO SCH (21:15)
[2019-08-10] MEDS: traZODone 50 MG TABLET PO PRN (21:15)
[2019-08-10] MEDS: HydrOXYzine PAMOATE 25 MG CAPSULE PO SCH (21:15)
[2019-08-10] MEDS: PRAMIPEXOLE 1 MG TABLET PO SCH (21:15)
[2019-08-10] MEDS: INSULIN GLARGINE 100 UNIT/ML SUBCUT SCH (21:16)
[2019-08-10] MEDS: ENOXAPARIN 40 MG/0.4 ML SYRINGE SUBCUT SCH (21:16)
[2019-08-11] MEDS: ALBUTEROL INHALER 18 GM INH SCH ×4 (00:02→20:54)
[2019-08-11] MEDS: LEVOTHYROXINE 137 MCG TABLET PO SCH (06:04)
[2019-08-11 06:07] LABS: Albumin 1.4 G/DL (3.4-5.0); Basophils % 0.5 % (0.0-0.8); Bilirubin,Total 0.6 MG/DL (0.2-1.0); Calcium 7.5 MG/DL (8.5-10.1); Eosinophils # 0.8 10*3/uL (0.0-0.87); Eosinophils % 9.5 % (0.00-10.9); Hematocrit 32.6 VOL% (35.7-47.0); Hemoglobin 10.1 GM/DL (12.0-16.0); Immature Granulocytes Absolute 0.08 #; Lymphocytes # 1.1 10*3/uL (1.4-4.0); Lymphocytes % 13.5 % (21.3-54.2); Mean Corpuscular Volume 82.1 FL (87-102); Mean Platelet Volume 10.4 FL (9.6-12.0); Monocytes % 10.3 % (1.7-12.7); Neutrophils % 65.2 % (38.7-73.9); Osmolality,Calculated 281.8 MOS/KG (273-304); Platelet Count 308 T/CUMM (130-400); Red Blood Count 3.97 MC/CUMM (3.8-5.5); Red Cell Distribution Width 16.5 % (9.3-17.3); Total Protein 5.8 G/DL (6.4-8.3); White Blood Count 8.1 T/CUMM (4-12)
[2019-08-11] MEDS: NEBIVOLOL 10 MG TABLET PO SCH (08:36)
[2019-08-11] MEDS: cefTRIAXone 1,000 MG in SYRINGE 1 EACH IV SCH (08:36)
[2019-08-11] MEDS: GABAPENTIN 300 MG CAPSULE PO SCH ×3 (08:36→20:55)
[2019-08-11] MEDS: INSULIN REGULAR 100 UNIT/ML SUBCUT SCH ×4 (08:36→20:54)
[2019-08-11] MEDS: PANTOPRAZOLE 40 MG TABLET PO SCH ×2 (08:36→20:55)
[2019-08-11] MEDS: AZELASTINE NASAL 137 MCG/SPRAY 30 ML BOTTLE BOTH NARES SCH ×2 (08:36→20:54)
[2019-08-11] MEDS: MONTELUKAST 10 MG TABLET PO SCH (08:36)
[2019-08-11] MEDS: ROSUVASTATIN 20 MG TABLET PO SCH (08:36)
[2019-08-11] MEDS: ASPIRIN CHEW 81 MG TABLET PO SCH (08:36)
[2019-08-11] MEDS: ARIPiprazole 10 MG TABLET PO SCH (08:36)
[2019-08-11] MEDS: GLYCOPYRROLATE FORMOTEROL INH SCH ×2 (08:36→20:54)
[2019-08-11] MEDS: hydrALAZINE 20 MG/1 ML VIAL IV PRN ×2 (08:36→15:55)
[2019-08-11] MEDS: LOSARTAN 50 MG TABLET PO SCH (08:36)
[2019-08-11] MEDS ORDERED: hydrALAZINE 25 MG TABLET PO ONE (11:25)
[2019-08-11] MEDS: hydrALAZINE 25 MG TABLET PO SCH ×2 (15:09→20:54)
[2019-08-11] MEDS: INSULIN GLARGINE 100 UNIT/ML SUBCUT SCH (20:54)
[2019-08-11] MEDS: AMITRIPTYLINE 25 MG TABLET PO SCH (20:54)
[2019-08-11] MEDS: ENOXAPARIN 40 MG/0.4 ML SYRINGE SUBCUT SCH (20:55)
[2019-08-11] MEDS: PRAMIPEXOLE 1 MG TABLET PO SCH (20:55)
[2019-08-11] MEDS: HydrOXYzine PAMOATE 25 MG CAPSULE PO SCH (20:55)
[2019-08-11] MEDS: traZODone 50 MG TABLET PO PRN (20:55)
[2019-08-12] MEDS: ALBUTEROL INHALER 18 GM INH SCH ×4 (00:11→18:00)
[2019-08-12] MEDS: LEVOTHYROXINE 137 MCG TABLET PO SCH (06:00)
[2019-08-12 06:56] LABS: Basophils % 0.5 % (0.0-0.8); Eosinophils # 0.7 10*3/uL (0.0-0.87); Eosinophils % 7.6 % (0.00-10.9); Hematocrit 31.4 VOL% (35.7-47.0); Hemoglobin 9.7 GM/DL (12.0-16.0); Immature Granulocytes Absolute 0.09 #; Lymphocytes # 1.1 10*3/uL (1.4-4.0); Lymphocytes % 12.8 % (21.3-54.2); Mean Corpuscular HGB Conc 30.9 GM/DL (32-36); Mean Corpuscular Volume 81.3 FL (87-102); Mean Platelet Volume 11.2 FL (9.6-12.0); Monocytes % 8.7 % (1.7-12.7); Neutrophils % 69.4 % (38.7-73.9); Platelet Count 208 T/CUMM (130-400); Red Blood Count 3.86 MC/CUMM (3.8-5.5); Red Cell Distribution Width 16.6 % (9.3-17.3); White Blood Count 8.8 T/CUMM (4-12)
[2019-08-12 07:16] LABS: Albumin 1.4 G/DL (3.4-5.0); Bilirubin,Total 0.8 MG/DL (0.2-1.0); Calcium 8.3 MG/DL (8.5-10.1); Osmolality,Calculated 271.1 MOS/KG (273-304); Total Protein 6.3 G/DL (6.4-8.3)
[2019-08-12] MEDS: INSULIN REGULAR 100 UNIT/ML SUBCUT SCH ×4 (09:07→21:07)
[2019-08-12] MEDS: ARIPiprazole 10 MG TABLET PO SCH (10:17)
[2019-08-12] MEDS: AZELASTINE NASAL 137 MCG/SPRAY 30 ML BOTTLE BOTH NARES SCH ×2 (10:18→23:25)
[2019-08-12] MEDS: ASPIRIN CHEW 81 MG TABLET PO SCH (10:18)
[2019-08-12] MEDS: LOSARTAN 50 MG TABLET PO SCH (10:19)
[2019-08-12] MEDS: NEBIVOLOL 10 MG TABLET PO SCH (10:19)
[2019-08-12] MEDS: ROSUVASTATIN 20 MG TABLET PO SCH (10:19)
[2019-08-12] MEDS: GLYCOPYRROLATE FORMOTEROL INH SCH ×2 (10:20→23:26)
[2019-08-12] MEDS: GABAPENTIN 300 MG CAPSULE PO SCH ×3 (10:20→21:07)
[2019-08-12] MEDS: cefTRIAXone 1,000 MG in SYRINGE 1 EACH IV SCH (10:20)
[2019-08-12] MEDS: PANTOPRAZOLE 40 MG TABLET PO SCH ×2 (10:20→21:07)
[2019-08-12] MEDS: MONTELUKAST 10 MG TABLET PO SCH (10:20)
[2019-08-12] MEDS: ONDANSETRON 4 MG/2 ML VIAL IV PRN ×2 (11:15→21:53)
[2019-08-12] MEDS: ALPRAZolam 0.5 MG TABLET PO PRN (17:59)
[2019-08-12] MEDS: INSULIN GLARGINE 100 UNIT/ML SUBCUT SCH (21:07)
[2019-08-12] MEDS: HydrOXYzine PAMOATE 25 MG CAPSULE PO SCH (21:07)
[2019-08-12] MEDS: PRAMIPEXOLE 1 MG TABLET PO SCH (21:07)
[2019-08-12] MEDS: ENOXAPARIN 40 MG/0.4 ML SYRINGE SUBCUT SCH (21:07)
[2019-08-12] MEDS: AMITRIPTYLINE 25 MG TABLET PO SCH (21:07)
[2019-08-12] MEDS: BENZONATATE 100 MG CAPSULE PO PRN (21:50)
[2019-08-12] MEDS: traZODone 50 MG TABLET PO PRN (21:53)
[2019-08-13] MEDS: ALBUTEROL INHALER 18 GM INH SCH ×3 (00:36→13:36)
[2019-08-13 07:27] LABS: Basophils # 0.1 10*3/uL (0.0-0.2); Basophils % 0.8 % (0.0-0.8); Eosinophils # 0.9 10*3/uL (0.0-0.87); Eosinophils % 13.5 % (0.00-10.9); Hematocrit 31.4 VOL% (35.7-47.0); Hemoglobin 9.6 GM/DL (12.0-16.0); Immature Granulocytes % 0.8 %; Immature Granulocytes Absolute 0.05 #; Lymphocytes # 1.2 10*3/uL (1.4-4.0); Lymphocytes % 19.1 % (21.3-54.2); Mean Corpuscular HGB Conc 30.6 GM/DL (32-36); Mean Corpuscular Volume 82.8 FL (87-102); Mean Platelet Volume 10.4 FL (9.6-12.0); Monocytes % 10.2 % (1.7-12.7); Neutrophils % 55.6 % (38.7-73.9); Platelet Count 339 T/CUMM (130-400); Red Blood Count 3.79 MC/CUMM (3.8-5.5); Red Cell Distribution Width 16.4 % (9.3-17.3); White Blood Count 6.3 T/CUMM (4-12)
[2019-08-13 07:48] LABS: Band Neutrophils 1 % (0-10); Eosinophils 9 % (0-10); Hypochromasia 1+; Lymphocytes 20 % (20-55); Microcytosis Slight; Platelet Estimate Adequate; Segmented Neutrophils 63 % (50-85); Total Cells Counted 100
[2019-08-13 07:49] LABS: Alanine Aminotransferase 29 U/L (13-56); Albumin 1.2 G/DL (3.4-5.0); Alkaline Phosphatase 57 U/L (45-117); Aspartate Amino Transferase 20 U/L (0-37); Bilirubin,Total < 0.39 MG/DL (0.2-1.0); Blood Urea Nitrogen 15 MG/DL (7-18); Calcium 7.8 MG/DL (8.5-10.1); Estimated Glom Filtration Rate 95 ML/MIN; Glucose 74 MG/DL (74-106); Osmolality,Calculated 274.7 MOS/KG (273-304); Total Protein 5.5 G/DL (6.4-8.3)
[2019-08-13] MEDS: ARIPiprazole 10 MG TABLET PO SCH (08:18)
[2019-08-13] MEDS: INSULIN REGULAR 100 UNIT/ML SUBCUT SCH ×2 (08:18→11:45)
[2019-08-13] MEDS: NEBIVOLOL 10 MG TABLET PO SCH (08:19)
[2019-08-13] MEDS: ASPIRIN CHEW 81 MG TABLET PO SCH (08:19)
[2019-08-13] MEDS: PANTOPRAZOLE 40 MG TABLET PO SCH (08:19)
[2019-08-13] MEDS: LOSARTAN 50 MG TABLET PO SCH (08:19)
[2019-08-13] MEDS: ROSUVASTATIN 20 MG TABLET PO SCH (08:19)
[2019-08-13] MEDS: GABAPENTIN 300 MG CAPSULE PO SCH (08:19)
[2019-08-13] MEDS: MONTELUKAST 10 MG TABLET PO SCH (08:20)
[2019-08-13] MEDS: cefTRIAXone 1,000 MG in SYRINGE 1 EACH IV SCH (08:20)
[2019-08-13] MEDS ORDERED: LEVOTHYROXINE 137 MCG TABLET PO SCH (09:00)
[2019-08-13] MEDS: AZELASTINE NASAL 137 MCG/SPRAY 30 ML BOTTLE BOTH NARES SCH (09:45)
[2019-08-13] MEDS: GLYCOPYRROLATE FORMOTEROL INH SCH (09:45)
[2019-08-13] MEDS: ALPRAZolam 0.5 MG TABLET PO PRN (11:47)
[2019-08-13 11:49] VITALS: BP 163/65
[2019-08-13] MEDS: ONDANSETRON 4 MG/2 ML VIAL IV PRN (12:00)
== END 2019-08-13 14:40 | disposition swing bed (61) | DRG 177 ==
LOC: EDUNIT# → EDBD → N.ED 11:19 → SUATTDRO 14:14 → N.EDINP 14:14 → N.2E 15:00 → N.2W 08-07 12:43
PROVIDERS: ADMIT Internal Medicine; ATTEND Internal Medicine

== ENCOUNTER 2019-09-26 10:06 | Observation (INO) ==
[2019-09-26] MEDS ORDERED: SODIUM CHLORIDE 0.9% 1,000 ML IV STA (10:21)
[2019-09-26 10:47] LABS: Basophils % 0.8 % (0.0-0.8); Eosinophils # 0.3 10*3/uL (0.0-0.87); Eosinophils % 8.9 % (0.00-10.9); Hematocrit 28.5 VOL% (35.7-47.0); Hemoglobin 8.2 GM/DL (12.0-16.0); Immature Granulocytes % 0.6 %; Immature Granulocytes Absolute 0.02 #; Lymphocytes # 0.6 10*3/uL (1.4-4.0); Lymphocytes % 16.7 % (21.3-54.2); Mean Corpuscular HGB Conc 28.8 GM/DL (32-36); Mean Corpuscular Volume 89.6 FL (87-102); Mean Platelet Volume 10.2 FL (9.6-12.0); Monocytes % 13.9 % (1.7-12.7); Neutrophils % 59.1 % (38.7-73.9); Platelet Count 197 T/CUMM (130-400); Red Blood Count 3.18 MC/CUMM (3.8-5.5); Red Cell Distribution Width 15.9 % (9.3-17.3); White Blood Count 3.6 T/CUMM (4-12)
[2019-09-26 10:55] LABS: % Iron Saturation 12.3 % (18-50); Albumin 2.2 G/DL (3.4-5.0); Bilirubin,Total 0.4 MG/DL (0.2-1.0); Calcium 8.1 MG/DL (8.5-10.1); Osmolality,Calculated 289.2 MOS/KG (273-304); Total Protein 6.2 G/DL (6.4-8.3)
[2019-09-26 11:04] LABS: Folate 10.6 NG/ML (5.4-24.0)
[2019-09-26 11:13] LABS: Apearance,Urine Slightly Hazy (Clear); Bacteria,Urine Few /HPF (Few); Bilirubin,Urine Negative (Negative); Blood, Urine Negative (Negative); Glucose,Urine (UA) >=500 mg/dL (Negative); Hyaline Casts,Urine 8 /LPF (0-3); Ketones,Urine Negative (Negative); Mucus,Urine Occasional /LPF (Occasional); Nitrite,Urine Negative (Negative); Protein,Urine 100 MG/DL; Squamous Epithelial Cell,Urine Occasional /HPF (0-10); Urine Color Yellow (Yellow); Urine Urobilinogen < 2.0 EU/DL (0.2-1.0); WBC,Urine 5 /HPF (0-6)
[2019-09-26 11:29] LABS: Anisocytosis 1+; Platelet Estimate Normal
[2019-09-26] MEDS ORDERED: ONDANSETRON 4 MG/2 ML VIAL IV PRN (13:07)
[2019-09-26] MEDS ORDERED: GLUCAGON 1 MG VIAL IM PRN (13:07)
[2019-09-26] MEDS ORDERED: ACETAMINOPHEN 325 MG TABLET PO PRN (13:07)
[2019-09-26] MEDS ORDERED: DEXTROSE 50% 25 GM/50 ML VIAL IV PRN (13:07)
[2019-09-26] MEDS ORDERED: hydrALAZINE 20 MG/1 ML VIAL IV PRN (13:07)
[2019-09-26 14:14] LABS: Risk Ratio 1.64; Thyroid Stimulating Hormone 7.38 uIU/ml (0.358-3.74); VLDL CHOLESTEROL 29.6 MG/DL
[2019-09-26] MEDS ORDERED: AZELASTINE NASAL 137 MCG/SPRAY 30 ML BOTTLE BOTH NARES PRN (14:21)
[2019-09-26] MEDS ORDERED: FLUTICASONE 50 MCG NASAL SPRAY 16 GM BOTTLE BOTH NARES PRN (14:21)
[2019-09-26] MEDS ORDERED: SODIUM CHLORIDE 0.9% 100 ML IV ONE (14:41)
[2019-09-26] MEDS ORDERED: SODIUM CHLORIDE 0.9% 250 ML IV ONE (14:41)
[2019-09-26] MEDS: ALPRAZolam 0.5 MG TABLET PO PRN ×2 (14:45→21:13)
[2019-09-26] MEDS: cefTRIAXone 1,000 MG in SYRINGE 1 EACH IV SCH (14:45)
[2019-09-26 16:30] LABS: Hematocrit 25.9 VOL% (35.7-47.0); Hemoglobin 7.4 GM/DL (12.0-16.0)
[2019-09-26] MEDS: GABAPENTIN 300 MG CAPSULE PO SCH ×2 (16:41→21:15)
[2019-09-26] MEDS: INSULIN REGULAR 100 UNIT/ML SUBCUT SCH ×2 (16:41→21:16)
[2019-09-26] MEDS: FERROUS SULFATE 325 MG TABLET PO SCH (17:13)
[2019-09-26] MEDS: ALBUTEROL 2.5 MG/3 ML NEB RESP TX SCH (19:45)
[2019-09-26] MEDS ORDERED: ENOXAPARIN 40 MG/0.4 ML SYRINGE SUBCUT SCH (21:00)
[2019-09-26] MEDS ORDERED: INSULIN GLARGINE 100 UNIT/ML SUBCUT SCH (21:00)
[2019-09-26] MEDS: HydrOXYzine PAMOATE 25 MG CAPSULE PO SCH (21:15)
[2019-09-26] MEDS: AMITRIPTYLINE 25 MG TABLET PO SCH (21:15)
[2019-09-26] MEDS: PRAMIPEXOLE 1 MG TABLET PO SCH (21:15)
[2019-09-26] MEDS: NON-FORMULARY MEDICATION (Glycopyrrolate-Formoterol [Bevespi Aerosphere] 2 PUFF) INH SCH (21:45)
[2019-09-26 22:25] LABS: Hemoglobin 7.4 GM/DL (12.0-16.0)
[2019-09-27] MEDS: ALBUTEROL 2.5 MG/3 ML NEB RESP TX SCH ×4 (01:02→19:25)
[2019-09-27] MEDS: ALPRAZolam 0.5 MG TABLET PO PRN ×2 (06:38→21:13)
[2019-09-27] MEDS: LEVOTHYROXINE 137 MCG TABLET PO SCH (06:38)
[2019-09-27 06:54] LABS: Eosinophils # 0.3 10*3/uL (0.0-0.87); Eosinophils % 6.8 % (0.00-10.9); Hematocrit 22.6 VOL% (35.7-47.0); Hemoglobin 6.6 GM/DL (12.0-16.0); Immature Granulocytes % 0.3 %; Immature Granulocytes Absolute 0.01 #; Lymphocytes # 0.9 10*3/uL (1.4-4.0); Lymphocytes % 22.8 % (21.3-54.2); Mean Corpuscular HGB Conc 29.2 GM/DL (32-36); Mean Platelet Volume 10.5 FL (9.6-12.0); Monocytes % 17.3 % (1.7-12.7); Neutrophils % 51.8 % (38.7-73.9); Platelet Count 154 T/CUMM (130-400); Red Blood Count 2.54 MC/CUMM (3.8-5.5); Red Cell Distribution Width 15.9 % (9.3-17.3)
[2019-09-27] MEDS ORDERED: SODIUM CHLORIDE 0.9% 1,000 ML IV PRN (07:01)
[2019-09-27] MEDS ORDERED: FUROSEMIDE 40 MG/4 ML VIAL IV ONE (07:02)
[2019-09-27 07:11] LABS: Calcium 8.1 MG/DL (8.5-10.1); Osmolality,Calculated 279.4 MOS/KG (273-304)
[2019-09-27 07:40] LABS: Free T4 (Free Thyroxine) 1.12 NG/DL (0.76-1.46)
[2019-09-27 08:17] LABS: Band Neutrophils 6 % (0-10); Eosinophils 9 % (0-10); Lymphocytes 25 % (20-55); Segmented Neutrophils 49 % (50-85); Total Cells Counted 100
[2019-09-27 08:18] LABS: Hypochromasia 2+
[2019-09-27 08:22] LABS: Anisocytosis 2+; Polychromasia Slight
[2019-09-27 08:23] LABS: Platelet Estimate Adequate
[2019-09-27] MEDS: INSULIN REGULAR 100 UNIT/ML SUBCUT SCH ×4 (08:50→21:13)
[2019-09-27] MEDS: POLYETHYLENE GLYCOL POWDER 17 GM PACK PO SCH (09:12)
[2019-09-27] MEDS: ESCITALOPRAM 10 MG TABLET PO SCH (09:13)
[2019-09-27] MEDS: LOSARTAN 50 MG TABLET PO SCH (09:13)
[2019-09-27] MEDS: NEBIVOLOL 10 MG TABLET PO SCH (09:13)
[2019-09-27] MEDS: CALCIUM (CARBONATE)/VITAMIN D 600 MG-400 UNIT TABLET PO SCH (09:13)
[2019-09-27] MEDS: ARIPiprazole 10 MG TABLET PO SCH (09:13)
[2019-09-27] MEDS: MONTELUKAST 10 MG TABLET PO SCH (09:14)
[2019-09-27] MEDS: FERROUS SULFATE 325 MG TABLET PO SCH ×3 (09:14→18:05)
[2019-09-27] MEDS: PANTOPRAZOLE 40 MG TABLET PO SCH (09:14)
[2019-09-27] MEDS: ROSUVASTATIN 20 MG TABLET PO SCH (09:14)
[2019-09-27] MEDS: GABAPENTIN 300 MG CAPSULE PO SCH ×3 (09:14→21:12)
[2019-09-27] MEDS: NON-FORMULARY MEDICATION (Glycopyrrolate-Formoterol [Bevespi Aerosphere] 2 PUFF) INH SCH ×2 (09:44→21:12)
[2019-09-27 13:41] LABS: Hematocrit 27.6 VOL% (35.7-47.0); Hemoglobin 8.2 GM/DL (12.0-16.0)
[2019-09-27] MEDS: cefTRIAXone 1,000 MG in SYRINGE 1 EACH IV SCH (14:34)
[2019-09-27 21:00] LABS: Hematocrit 32.1 VOL% (35.7-47.0); Hemoglobin 9.7 GM/DL (12.0-16.0)
[2019-09-27] MEDS: HydrOXYzine PAMOATE 25 MG CAPSULE PO SCH (21:12)
[2019-09-27] MEDS: PRAMIPEXOLE 1 MG TABLET PO SCH (21:12)
[2019-09-27] MEDS: AMITRIPTYLINE 25 MG TABLET PO SCH (21:13)
[2019-09-28] MEDS: ALBUTEROL 2.5 MG/3 ML NEB RESP TX SCH ×2 (00:56→07:20)
[2019-09-28 05:33] LABS: Basophils % 0.8 % (0.0-0.8); Eosinophils # 0.2 10*3/uL (0.0-0.87); Hematocrit 31.4 VOL% (35.7-47.0); Hemoglobin 9.7 GM/DL (12.0-16.0); Immature Granulocytes % 0.4 %; Immature Granulocytes Absolute 0.02 #; Lymphocytes # 0.8 10*3/uL (1.4-4.0); Lymphocytes % 15.2 % (21.3-54.2); Mean Corpuscular HGB Conc 30.9 GM/DL (32-36); Mean Corpuscular Volume 85.1 FL (87-102); Mean Platelet Volume 11.6 FL (9.6-12.0); Monocytes % 17.2 % (1.7-12.7); Neutrophils % 62.4 % (38.7-73.9); Platelet Count 164 T/CUMM (130-400); Red Blood Count 3.69 MC/CUMM (3.8-5.5); Red Cell Distribution Width 16.4 % (9.3-17.3)
[2019-09-28 05:45] LABS: Calcium 8.3 MG/DL (8.5-10.1); Osmolality,Calculated 272.5 MOS/KG (273-304)
[2019-09-28] MEDS: LEVOTHYROXINE 137 MCG TABLET PO SCH (06:09)
[2019-09-28 06:15] LABS: Band Neutrophils 6 % (0-10); Eosinophils 5 % (0-10); Hypochromasia 1+; Lymphocytes 19 % (20-55); Platelet Estimate Normal; Segmented Neutrophils 58 % (50-85); Total Cells Counted 100
[2019-09-28] MEDS: ALPRAZolam 0.5 MG TABLET PO PRN (06:16)
[2019-09-28] MEDS: INSULIN REGULAR 100 UNIT/ML SUBCUT SCH (08:56)
[2019-09-28] MEDS: ESCITALOPRAM 10 MG TABLET PO SCH (08:57)
[2019-09-28] MEDS: CALCIUM (CARBONATE)/VITAMIN D 600 MG-400 UNIT TABLET PO SCH (08:57)
[2019-09-28] MEDS: ROSUVASTATIN 20 MG TABLET PO SCH (08:57)
[2019-09-28] MEDS: LOSARTAN 50 MG TABLET PO SCH (08:57)
[2019-09-28] MEDS: FERROUS SULFATE 325 MG TABLET PO SCH (08:57)
[2019-09-28] MEDS: ARIPiprazole 10 MG TABLET PO SCH (08:57)
[2019-09-28] MEDS: GABAPENTIN 300 MG CAPSULE PO SCH (08:57)
[2019-09-28] MEDS: NEBIVOLOL 10 MG TABLET PO SCH (08:58)
[2019-09-28] MEDS: PANTOPRAZOLE 40 MG TABLET PO SCH (08:58)
[2019-09-28] MEDS: POLYETHYLENE GLYCOL POWDER 17 GM PACK PO SCH (09:03)
[2019-09-28] MEDS: NON-FORMULARY MEDICATION (Glycopyrrolate-Formoterol [Bevespi Aerosphere] 2 PUFF) INH SCH (09:03)
[2019-09-28] MEDS: MONTELUKAST 10 MG TABLET PO SCH (09:04)
[2019-09-28] MEDS ORDERED: FUROSEMIDE 20 MG/2 ML VIAL IV ONE (09:05)
[2019-09-28 09:24] VITALS: BP 145/71
== END 2019-09-28 11:15 ==
LOC: EDUNIT# → EDBD → N.EDINP 10:06 → N.ED 10:06 → N.3E 14:29
PROVIDERS: ADMIT Family Medicine; ATTEND Family Medicine

== ENCOUNTER 2019-10-09 14:31 | Inpatient (IN) ==
[2019-10-09] MEDS ORDERED: ONDANSETRON 4 MG/2 ML VIAL IV STA (14:46)
[2019-10-09 16:25] LABS: Basophils % 0.7 % (0.0-0.8); Eosinophils # 0.3 10*3/uL (0.0-0.87); Eosinophils % 5.6 % (0.00-10.9); Hematocrit 33.6 VOL% (35.7-47.0); Hemoglobin 10.1 GM/DL (12.0-16.0); Immature Granulocytes % 0.5 %; Immature Granulocytes Absolute 0.03 #; Lymphocytes # 0.9 10*3/uL (1.4-4.0); Lymphocytes % 15.8 % (21.3-54.2); Mean Corpuscular HGB Conc 30.1 GM/DL (32-36); Mean Corpuscular Volume 86.8 FL (87-102); Mean Platelet Volume 9.9 FL (9.6-12.0); Monocytes % 7.7 % (1.7-12.7); Neutrophils % 69.7 % (38.7-73.9); Platelet Count 236 T/CUMM (130-400); Red Blood Count 3.87 MC/CUMM (3.8-5.5); White Blood Count 5.7 T/CUMM (4-12)
[2019-10-09] MEDS ORDERED: hydrALAZINE 20 MG/1 ML VIAL IV STA (16:37)
[2019-10-09 16:48] LABS: Alanine Aminotransferase 124 U/L (13-56); Albumin 2.3 G/DL (3.4-5.0); Alkaline Phosphatase 100 U/L (45-117); Aspartate Amino Transferase 82 U/L (0-37); Bilirubin,Total < 0.39 MG/DL (0.2-1.0); Blood Urea Nitrogen 19 MG/DL (7-18); Estimated Glom Filtration Rate 99 ML/MIN; Glucose 130 MG/DL (74-106); Osmolality,Calculated 276.8 MOS/KG (273-304); Total Protein 5.9 G/DL (6.4-8.3)
[2019-10-09] MEDS ORDERED: MAGNESIUM HYDROXIDE SUSP 30 ML UDCUP PO STA (17:21)
[2019-10-09] MEDS ORDERED: BISACODYL 5 MG TABLET PO STA (17:22)
[2019-10-09] MEDS ORDERED: SODIUM PHOSPHATE ENEMA 133 ML BOTTLE RECTAL STA (17:22)
[2019-10-09] MEDS ORDERED: FUROSEMIDE 40 MG/4 ML VIAL IV STA (17:28)
[2019-10-09] MEDS ORDERED: GLUCAGON 1 MG VIAL IM PRN ×2 (17:37→20:00)
[2019-10-09] MEDS ORDERED: DEXTROSE 50% 25 GM/50 ML VIAL IV PRN ×2 (17:37→19:00)
[2019-10-09 19:36] LABS: Apearance,Urine Slightly Hazy (Clear); Bacteria,Urine Few /HPF (Few); Bilirubin,Urine Negative (Negative); Blood, Urine Negative (Negative); Glucose,Urine (UA) 50 mg/dL (Negative); Ketones,Urine Negative (Negative); Nitrite,Urine Negative (Negative); Protein,Urine >=500 MG/DL; RBC,Urine 6 /HPF (0-4); Squamous Epithelial Cell,Urine Occasional /HPF (0-10); Urine Color Yellow (Yellow); Urine Urobilinogen < 2.0 EU/DL (0.2-1.0); WBC,Urine 32 /HPF (0-6)
[2019-10-09] MEDS: ALBUTEROL/IPRATROPIUM 3 ML NEB RESP TX SCH (19:47)
[2019-10-09] MEDS ORDERED: ALUMINUM/MAGNES/SIMETH MAX STR 30 ML UDCUP PO PRN (20:00)
[2019-10-09] MEDS ORDERED: diphenhydrAMINE CAP 25 MG CAPSULE PO PRN (20:00)
[2019-10-09] MEDS ORDERED: LACTULOSE 20 GM/30 ML UDCUP PO PRN (20:00)
[2019-10-09] MEDS ORDERED: busPIRone 5 MG TABLET PO PRN (21:00)
[2019-10-09] MEDS ORDERED: BENZONATATE 100 MG CAPSULE PO PRN (21:00)
[2019-10-09] MEDS ORDERED: AZELASTINE NASAL 137 MCG/SPRAY 30 ML BOTTLE BOTH NARES PRN (21:00)
[2019-10-09] MEDS ORDERED: FLUTICASONE 50 MCG NASAL SPRAY 16 GM BOTTLE BOTH NARES PRN (21:00)
[2019-10-09] MEDS ORDERED: guaiFENesin/DM ER 600-30 MG TABLET PO PRN (21:00)
[2019-10-09] MEDS ORDERED: SIMETHICONE CHEW 125 MG TABLET PO PRN (21:00)
[2019-10-09] MEDS: INDOMETHACIN 25 MG CAPSULE PO SCH (22:01)
[2019-10-09] MEDS: PRAMIPEXOLE 1 MG TABLET PO SCH (22:01)
[2019-10-09] MEDS: AMITRIPTYLINE 25 MG TABLET PO SCH (22:01)
[2019-10-09] MEDS: GABAPENTIN 300 MG CAPSULE PO SCH (22:02)
[2019-10-09] MEDS: ENOXAPARIN 40 MG/0.4 ML SYRINGE SUBCUT SCH (22:02)
[2019-10-09] MEDS: LACTOBACILLUS RHAMNOSUS GG CAPSULE PO SCH (22:02)
[2019-10-09] MEDS: FERROUS SULFATE 325 MG TABLET PO SCH (22:02)
[2019-10-09] MEDS: PANTOPRAZOLE 40 MG TABLET PO SCH (22:02)
[2019-10-09] MEDS: HydrOXYzine PAMOATE 25 MG CAPSULE PO SCH (22:02)
[2019-10-09] MEDS: INSULIN REGULAR 100 UNIT/ML SUBCUT SCH (22:03)
[2019-10-09] MEDS: INSULIN GLARGINE 100 UNIT/ML SUBCUT SCH (22:04)
[2019-10-09] MEDS: LEVOFLOXACIN INJ 750 MG in PREMIX 1 EACH IV SCH (22:08)
[2019-10-09] MEDS: ZALEPLON 5 MG CAPSULE PO PRN (22:16)
[2019-10-09] MEDS: PIPERACILLIN/TAZOBACTAM 3,375 MG in SODIUM CHLORIDE 0.9% 100 ML IV SCH (23:52)
[2019-10-10] MEDS: ALBUTEROL/IPRATROPIUM 3 ML NEB RESP TX SCH ×4 (01:51→19:13)
[2019-10-10 04:43] LABS: Basophils % 1.1 % (0.0-0.8); Eosinophils # 0.2 10*3/uL (0.0-0.87); Hematocrit 28.9 VOL% (35.7-47.0); Hemoglobin 8.7 GM/DL (12.0-16.0); Immature Granulocytes % 0.8 %; Immature Granulocytes Absolute 0.03 #; Lymphocytes # 0.7 10*3/uL (1.4-4.0); Lymphocytes % 18.5 % (21.3-54.2); Mean Corpuscular HGB Conc 30.1 GM/DL (32-36); Mean Corpuscular Volume 87.3 FL (87-102); Mean Platelet Volume 10.3 FL (9.6-12.0); Monocytes % 10.6 % (1.7-12.7); Platelet Count 209 T/CUMM (130-400); Red Blood Count 3.31 MC/CUMM (3.8-5.5); Red Cell Distribution Width 15.1 % (9.3-17.3); White Blood Count 3.7 T/CUMM (4-12)
[2019-10-10 04:51] LABS: INR 1.1; PT Patient Result 11.4 SECS (9.8-11.9)
[2019-10-10 05:12] LABS: Albumin 1.9 G/DL (3.4-5.0); Bilirubin,Total 0.5 MG/DL (0.2-1.0); Calcium 7.7 MG/DL (8.5-10.1); Total Protein 5.4 G/DL (6.4-8.3)
[2019-10-10] MEDS: PIPERACILLIN/TAZOBACTAM 3,375 MG in SODIUM CHLORIDE 0.9% 100 ML IV SCH ×3 (05:45→23:09)
[2019-10-10] MEDS: LEVOTHYROXINE 137 MCG TABLET PO SCH (05:45)
[2019-10-10] MEDS: NON-FORMULARY MEDICATION (Glycopyrrolate-Formoterol [Bevespi Aerosphere] 2 PUFF) INH SCH ×2 (05:45→18:07)
[2019-10-10] MEDS ORDERED: FUROSEMIDE 40 MG/4 ML VIAL IV SCH (08:00)
[2019-10-10] MEDS ORDERED: SODIUM CHLORIDE 0.65% NASAL SPRAY 45 ML BOTTLE BOTH NARES PRN (08:56)
[2019-10-10] MEDS ORDERED: MAGNESIUM HYDROXIDE SUSP 30 ML UDCUP PO SCH (09:00)
[2019-10-10] MEDS: NEBIVOLOL 10 MG TABLET PO SCH (09:31)
[2019-10-10] MEDS: GABAPENTIN 300 MG CAPSULE PO SCH ×3 (09:31→21:10)
[2019-10-10] MEDS: FERROUS SULFATE 325 MG TABLET PO SCH ×3 (09:32→21:10)
[2019-10-10] MEDS: CALCIUM (CARBONATE)/VITAMIN D 600 MG-400 UNIT TABLET PO SCH (09:33)
[2019-10-10] MEDS: ARIPiprazole 10 MG TABLET PO SCH (09:33)
[2019-10-10] MEDS: LOSARTAN 50 MG TABLET PO SCH (09:34)
[2019-10-10] MEDS: INDOMETHACIN 25 MG CAPSULE PO SCH ×2 (09:34→21:11)
[2019-10-10] MEDS: PANTOPRAZOLE 40 MG TABLET PO SCH ×2 (09:36→21:10)
[2019-10-10] MEDS: MONTELUKAST 10 MG TABLET PO SCH (09:36)
[2019-10-10] MEDS: ASPIRIN CHEW 81 MG TABLET PO SCH (09:36)
[2019-10-10] MEDS: LACTOBACILLUS RHAMNOSUS GG CAPSULE PO SCH ×2 (09:37→21:11)
[2019-10-10] MEDS: ESCITALOPRAM 10 MG TABLET PO SCH (09:37)
[2019-10-10] MEDS: ROSUVASTATIN 20 MG TABLET PO SCH (09:38)
[2019-10-10] MEDS: LINACLOTIDE 145 MCG CAPSULE PO SCH (09:38)
[2019-10-10] MEDS: INSULIN REGULAR 100 UNIT/ML SUBCUT SCH ×4 (09:40→21:49)
[2019-10-10 10:44] LABS: Lymphocytes,Pleural Fluid 95 %; Monocytes,Pleural Fluid 3 %; Neutrophils,Pleural Fluid 2 %
[2019-10-10 10:45] LABS: RBC,Pleural Fluid 1040 T/CUMM
[2019-10-10 10:51] LABS: Amylase,Body Fluid 6 U/L; Glucose,Pleural Fluid 350 MG/DL; LDH,Body Fluid 66 U/L; Total Protein,Body Fluid < 2.0 G/DL
[2019-10-10] MEDS ORDERED: DEXTROSE 50% 25 GM/50 ML VIAL IV PRN (10:55)
[2019-10-10] MEDS: ALBUMIN 25% 12.5 GM in PREMIX 1 EACH IV SCH ×2 (11:10→17:20)
[2019-10-10] MEDS: MAGNESIUM HYDROXIDE SUSP 30 ML UDCUP PO SCH (11:13)
[2019-10-10] MEDS: ALPRAZolam 0.25 MG TABLET PO PRN ×2 (11:14→21:10)
[2019-10-10 11:16] LABS: Triglycerides,Body Fluid 17 MG/DL
[2019-10-10] MEDS: FUROSEMIDE 20 MG/2 ML VIAL IV SCH ×2 (14:33→18:08)
[2019-10-10] MEDS: PRAMIPEXOLE 1 MG TABLET PO SCH (21:10)
[2019-10-10] MEDS: HydrOXYzine PAMOATE 25 MG CAPSULE PO SCH (21:10)
[2019-10-10] MEDS: ENOXAPARIN 40 MG/0.4 ML SYRINGE SUBCUT SCH (21:11)
[2019-10-10] MEDS: AMITRIPTYLINE 25 MG TABLET PO SCH (21:11)
[2019-10-10] MEDS: LEVOFLOXACIN INJ 750 MG in PREMIX 1 EACH IV SCH (21:16)
[2019-10-10] MEDS: INSULIN GLARGINE 100 UNIT/ML SUBCUT SCH (21:50)
[2019-10-11] MEDS: ALBUTEROL/IPRATROPIUM 3 ML NEB RESP TX SCH ×4 (01:00→19:19)
[2019-10-11] MEDS: ALBUMIN 25% 12.5 GM in PREMIX 1 EACH IV SCH (02:25)
[2019-10-11] MEDS ORDERED: FUROSEMIDE 20 MG/2 ML VIAL IV ONE (04:52)
[2019-10-11] MEDS: FUROSEMIDE 20 MG/2 ML VIAL IV SCH (05:20)
[2019-10-11] MEDS: ALPRAZolam 0.25 MG TABLET PO PRN ×3 (05:52→20:40)
[2019-10-11] MEDS: LEVOTHYROXINE 137 MCG TABLET PO SCH (05:52)
[2019-10-11] MEDS: PIPERACILLIN/TAZOBACTAM 3,375 MG in SODIUM CHLORIDE 0.9% 100 ML IV SCH ×3 (05:56→22:25)
[2019-10-11] MEDS: NON-FORMULARY MEDICATION (Glycopyrrolate-Formoterol [Bevespi Aerosphere] 2 PUFF) INH SCH ×2 (05:56→16:02)
[2019-10-11 06:25] LABS: Basophils % 0.6 % (0.0-0.8); Eosinophils # 0.4 10*3/uL (0.0-0.87); Eosinophils % 12.4 % (0.00-10.9); Hematocrit 25.6 VOL% (35.7-47.0); Hemoglobin 7.4 GM/DL (12.0-16.0); Immature Granulocytes % 0.3 %; Immature Granulocytes Absolute 0.01 #; Lymphocytes # 0.6 10*3/uL (1.4-4.0); Lymphocytes % 17.1 % (21.3-54.2); Mean Corpuscular HGB Conc 28.9 GM/DL (32-36); Mean Corpuscular Volume 89.2 FL (87-102); Monocytes % 13.9 % (1.7-12.7); Neutrophils % 55.7 % (38.7-73.9); Platelet Count 185 T/CUMM (130-400); Red Blood Count 2.87 MC/CUMM (3.8-5.5); Red Cell Distribution Width 15.4 % (9.3-17.3); White Blood Count 3.5 T/CUMM (4-12)
[2019-10-11] MEDS ORDERED: SODIUM CHLORIDE 0.9% 1,000 ML IV PRN (06:42)
[2019-10-11 06:46] LABS: Albumin 2.3 G/DL (3.4-5.0); Bilirubin,Total 1.2 MG/DL (0.2-1.0); Calcium 7.6 MG/DL (8.5-10.1); Osmolality,Calculated 270.4 MOS/KG (273-304); Total Protein 5.6 G/DL (6.4-8.3)
[2019-10-11] MEDS ORDERED: FUROSEMIDE 20 MG/2 ML VIAL IV SCH ×2 (07:00→13:30)
[2019-10-11 07:01] LABS: Band Neutrophils 6 % (0-10); Eosinophils 17 % (0-10); Lymphocytes 19 % (20-55); Platelet Estimate Normal; Segmented Neutrophils 45 % (50-85); Total Cells Counted 100
[2019-10-11 07:02] LABS: Anisocytosis 1+
[2019-10-11] MEDS: INSULIN REGULAR 100 UNIT/ML SUBCUT SCH ×4 (08:08→20:37)
[2019-10-11] MEDS ORDERED: SODIUM PHOSPHATE ENEMA 133 ML BOTTLE RECTAL ONE (08:48)
[2019-10-11] MEDS: ESCITALOPRAM 10 MG TABLET PO SCH (09:19)
[2019-10-11] MEDS: GABAPENTIN 300 MG CAPSULE PO SCH ×3 (09:19→20:37)
[2019-10-11] MEDS: ASPIRIN CHEW 81 MG TABLET PO SCH (09:20)
[2019-10-11] MEDS: CALCIUM (CARBONATE)/VITAMIN D 600 MG-400 UNIT TABLET PO SCH (09:20)
[2019-10-11] MEDS: LOSARTAN 50 MG TABLET PO SCH (09:20)
[2019-10-11] MEDS: ARIPiprazole 10 MG TABLET PO SCH (09:20)
[2019-10-11] MEDS: FERROUS SULFATE 325 MG TABLET PO SCH ×3 (09:20→20:36)
[2019-10-11] MEDS: ROSUVASTATIN 20 MG TABLET PO SCH (09:20)
[2019-10-11] MEDS: LACTOBACILLUS RHAMNOSUS GG CAPSULE PO SCH ×2 (09:20→20:36)
[2019-10-11] MEDS: MONTELUKAST 10 MG TABLET PO SCH (09:20)
[2019-10-11] MEDS: NEBIVOLOL 10 MG TABLET PO SCH (09:20)
[2019-10-11] MEDS: INDOMETHACIN 25 MG CAPSULE PO SCH ×2 (09:20→20:36)
[2019-10-11] MEDS: LINACLOTIDE 145 MCG CAPSULE PO SCH (09:21)
[2019-10-11] MEDS: PANTOPRAZOLE 40 MG TABLET PO SCH ×2 (09:22→20:36)
[2019-10-11] MEDS: MAGNESIUM HYDROXIDE SUSP 30 ML UDCUP PO SCH (09:22)
[2019-10-11] MEDS: LEVOFLOXACIN INJ 750 MG in PREMIX 1 EACH IV SCH (20:34)
[2019-10-11] MEDS: ENOXAPARIN 40 MG/0.4 ML SYRINGE SUBCUT SCH (20:35)
[2019-10-11] MEDS: AMITRIPTYLINE 25 MG TABLET PO SCH (20:35)
[2019-10-11] MEDS: HydrOXYzine PAMOATE 25 MG CAPSULE PO SCH (20:36)
[2019-10-11] MEDS: PRAMIPEXOLE 1 MG TABLET PO SCH (20:36)
[2019-10-11] MEDS: INSULIN GLARGINE 100 UNIT/ML SUBCUT SCH (20:37)
[2019-10-11] MEDS: ZALEPLON 5 MG CAPSULE PO PRN (20:40)
[2019-10-12] MEDS: ALBUTEROL/IPRATROPIUM 3 ML NEB RESP TX SCH ×4 (00:38→19:22)
[2019-10-12 05:28] LABS: Basophils % 0.8 % (0.0-0.8); Eosinophils # 0.5 10*3/uL (0.0-0.87); Eosinophils % 12.5 % (0.00-10.9); Hematocrit 34.9 VOL% (35.7-47.0); Immature Granulocytes % 0.3 %; Immature Granulocytes Absolute 0.01 #; Lymphocytes # 0.5 10*3/uL (1.4-4.0); Lymphocytes % 13.8 % (21.3-54.2); Mean Corpuscular HGB Conc 29.2 GM/DL (32-36); Mean Corpuscular Volume 90.9 FL (87-102); Mean Platelet Volume 10.5 FL (9.6-12.0); Monocytes % 12.5 % (1.7-12.7); Neutrophils % 60.1 % (38.7-73.9); Platelet Count 189 T/CUMM (130-400); Red Blood Count 3.84 MC/CUMM (3.8-5.5); Red Cell Distribution Width 14.9 % (9.3-17.3); White Blood Count 3.8 T/CUMM (4-12)
[2019-10-12] MEDS: PIPERACILLIN/TAZOBACTAM 3,375 MG in SODIUM CHLORIDE 0.9% 100 ML IV SCH ×3 (05:39→21:58)
[2019-10-12] MEDS: ALPRAZolam 0.25 MG TABLET PO PRN ×3 (05:43→20:21)
[2019-10-12 05:54] LABS: Albumin 2.3 G/DL (3.4-5.0); Bilirubin,Total 0.7 MG/DL (0.2-1.0); Calcium 7.5 MG/DL (8.5-10.1); Osmolality,Calculated 273.8 MOS/KG (273-304); Total Protein 5.7 G/DL (6.4-8.3)
[2019-10-12] MEDS: LEVOTHYROXINE 137 MCG TABLET PO SCH (06:09)
[2019-10-12] MEDS: NON-FORMULARY MEDICATION (Glycopyrrolate-Formoterol [Bevespi Aerosphere] 2 PUFF) INH SCH ×2 (06:09→16:55)
[2019-10-12 06:16] LABS: Hemoglobin 10.4 GM/DL (12.0-16.0)
[2019-10-12] MEDS: INSULIN REGULAR 100 UNIT/ML SUBCUT SCH ×4 (07:56→20:18)
[2019-10-12] MEDS: LINACLOTIDE 145 MCG CAPSULE PO SCH (08:40)
[2019-10-12] MEDS: INDOMETHACIN 25 MG CAPSULE PO SCH ×2 (08:41→20:20)
[2019-10-12] MEDS: NEBIVOLOL 10 MG TABLET PO SCH (08:41)
[2019-10-12] MEDS: ASPIRIN CHEW 81 MG TABLET PO SCH (08:42)
[2019-10-12] MEDS: CALCIUM (CARBONATE)/VITAMIN D 600 MG-400 UNIT TABLET PO SCH (08:42)
[2019-10-12] MEDS: GABAPENTIN 300 MG CAPSULE PO SCH ×3 (08:42→20:21)
[2019-10-12] MEDS: ESCITALOPRAM 10 MG TABLET PO SCH (08:42)
[2019-10-12] MEDS: ARIPiprazole 10 MG TABLET PO SCH (08:42)
[2019-10-12] MEDS: FERROUS SULFATE 325 MG TABLET PO SCH ×3 (08:43→20:21)
[2019-10-12] MEDS: PANTOPRAZOLE 40 MG TABLET PO SCH ×2 (08:43→20:20)
[2019-10-12] MEDS: MONTELUKAST 10 MG TABLET PO SCH (08:43)
[2019-10-12] MEDS: MAGNESIUM HYDROXIDE SUSP 30 ML UDCUP PO SCH (08:43)
[2019-10-12] MEDS: ROSUVASTATIN 20 MG TABLET PO SCH (08:43)
[2019-10-12] MEDS: LACTOBACILLUS RHAMNOSUS GG CAPSULE PO SCH ×2 (08:43→20:21)
[2019-10-12] MEDS: FUROSEMIDE 40 MG/4 ML VIAL IV SCH ×2 (08:56→16:48)
[2019-10-12] MEDS ORDERED: metOLazone 5 MG TABLET PO SCH (09:00)
[2019-10-12] MEDS: LOSARTAN 50 MG TABLET PO SCH (09:11)
[2019-10-12 11:23] LABS: Band Neutrophils 1 % (0-10); Eosinophils 5 % (0-10); Hypochromasia 2+; Lymphocytes 7 % (20-55); Platelet Estimate Adequate; Polychromasia Slight; Segmented Neutrophils 82 % (50-85); Total Cells Counted 100
[2019-10-12] MEDS ORDERED: SODIUM POLYSTYRENE SULFATE 15 GM/60 ML BOTTLE PO ONE (15:51)
[2019-10-12] MEDS: INSULIN GLARGINE 100 UNIT/ML SUBCUT SCH (20:19)
[2019-10-12] MEDS: LEVOFLOXACIN INJ 750 MG in PREMIX 1 EACH IV SCH (20:19)
[2019-10-12] MEDS: ENOXAPARIN 40 MG/0.4 ML SYRINGE SUBCUT SCH (20:19)
[2019-10-12] MEDS: PRAMIPEXOLE 1 MG TABLET PO SCH (20:20)
[2019-10-12] MEDS: AMITRIPTYLINE 25 MG TABLET PO SCH (20:21)
[2019-10-12] MEDS: ZALEPLON 5 MG CAPSULE PO PRN (20:21)
[2019-10-12] MEDS: HydrOXYzine PAMOATE 25 MG CAPSULE PO SCH (20:21)
[2019-10-13] MEDS: ALBUTEROL/IPRATROPIUM 3 ML NEB RESP TX SCH ×4 (00:50→19:07)
[2019-10-13 05:30] LABS: Basophils % 0.8 % (0.0-0.8); Eosinophils # 0.5 10*3/uL (0.0-0.87); Eosinophils % 13.8 % (0.00-10.9); Hematocrit 33.2 VOL% (35.7-47.0); Hemoglobin 10.3 GM/DL (12.0-16.0); Immature Granulocytes % 0.3 %; Immature Granulocytes Absolute 0.01 #; Lymphocytes # 0.6 10*3/uL (1.4-4.0); Lymphocytes % 17.2 % (21.3-54.2); Mean Corpuscular Volume 89.2 FL (87-102); Mean Platelet Volume 10.5 FL (9.6-12.0); Monocytes % 14.1 % (1.7-12.7); Neutrophils % 53.8 % (38.7-73.9); Platelet Count 192 T/CUMM (130-400); Red Blood Count 3.72 MC/CUMM (3.8-5.5); Red Cell Distribution Width 14.9 % (9.3-17.3); White Blood Count 3.6 T/CUMM (4-12)
[2019-10-13] MEDS: ALPRAZolam 0.25 MG TABLET PO PRN ×2 (05:33→20:41)
[2019-10-13] MEDS: LEVOTHYROXINE 137 MCG TABLET PO SCH (05:33)
[2019-10-13] MEDS: PIPERACILLIN/TAZOBACTAM 3,375 MG in SODIUM CHLORIDE 0.9% 100 ML IV SCH ×3 (05:34→22:21)
[2019-10-13] MEDS: NON-FORMULARY MEDICATION (Glycopyrrolate-Formoterol [Bevespi Aerosphere] 2 PUFF) INH SCH ×2 (05:59→16:05)
[2019-10-13 06:02] LABS: Albumin 2.3 G/DL (3.4-5.0); Bilirubin,Total 0.8 MG/DL (0.2-1.0); Calcium 7.4 MG/DL (8.5-10.1); Osmolality,Calculated 268.7 MOS/KG (273-304); Total Protein 5.8 G/DL (6.4-8.3)
[2019-10-13] MEDS: GABAPENTIN 300 MG CAPSULE PO SCH ×3 (08:16→20:41)
[2019-10-13] MEDS: MONTELUKAST 10 MG TABLET PO SCH (08:16)
[2019-10-13] MEDS: LOSARTAN 50 MG TABLET PO SCH (08:16)
[2019-10-13] MEDS: LACTOBACILLUS RHAMNOSUS GG CAPSULE PO SCH ×2 (08:17→20:41)
[2019-10-13] MEDS: NEBIVOLOL 10 MG TABLET PO SCH (08:17)
[2019-10-13] MEDS: ESCITALOPRAM 10 MG TABLET PO SCH (08:17)
[2019-10-13] MEDS: LINACLOTIDE 145 MCG CAPSULE PO SCH (08:18)
[2019-10-13] MEDS: CALCIUM (CARBONATE)/VITAMIN D 600 MG-400 UNIT TABLET PO SCH (08:18)
[2019-10-13] MEDS: ARIPiprazole 10 MG TABLET PO SCH (08:18)
[2019-10-13] MEDS: PANTOPRAZOLE 40 MG TABLET PO SCH ×2 (08:18→20:41)
[2019-10-13] MEDS: ASPIRIN CHEW 81 MG TABLET PO SCH (08:18)
[2019-10-13] MEDS: INDOMETHACIN 25 MG CAPSULE PO SCH ×2 (08:18→20:41)
[2019-10-13] MEDS: FUROSEMIDE 40 MG/4 ML VIAL IV SCH (08:18)
[2019-10-13] MEDS: FERROUS SULFATE 325 MG TABLET PO SCH ×3 (08:18→20:41)
[2019-10-13] MEDS: ROSUVASTATIN 20 MG TABLET PO SCH (08:19)
[2019-10-13] MEDS: INSULIN REGULAR 100 UNIT/ML SUBCUT SCH ×4 (08:38→20:42)
[2019-10-13 09:00] LABS: Band Neutrophils 1 % (0-10); Eosinophils 9 % (0-10); Lymphocytes 13 % (20-55); Segmented Neutrophils 62 % (50-85); Total Cells Counted 100
[2019-10-13 09:01] LABS: Platelet Estimate Normal
[2019-10-13 09:02] LABS: Hypochromasia 2+
[2019-10-13] MEDS: FUROSEMIDE 20 MG/2 ML VIAL IV SCH (16:02)
[2019-10-13] MEDS: LEVOFLOXACIN INJ 750 MG in PREMIX 1 EACH IV SCH (20:39)
[2019-10-13] MEDS: ENOXAPARIN 40 MG/0.4 ML SYRINGE SUBCUT SCH (20:40)
[2019-10-13] MEDS: INSULIN GLARGINE 100 UNIT/ML SUBCUT SCH (20:40)
[2019-10-13] MEDS: HydrOXYzine PAMOATE 25 MG CAPSULE PO SCH (20:41)
[2019-10-13] MEDS: PRAMIPEXOLE 1 MG TABLET PO SCH (20:41)
[2019-10-13] MEDS: ZALEPLON 5 MG CAPSULE PO PRN (20:41)
[2019-10-13] MEDS: AMITRIPTYLINE 25 MG TABLET PO SCH (20:42)
[2019-10-14] MEDS: ALBUTEROL/IPRATROPIUM 3 ML NEB RESP TX SCH ×4 (01:02→19:20)
[2019-10-14 05:05] LABS: Basophils # 0.1 10*3/uL (0.0-0.2); Basophils % 1.4 % (0.0-0.8); Eosinophils # 0.5 10*3/uL (0.0-0.87); Eosinophils % 12.6 % (0.00-10.9); Hemoglobin 10.3 GM/DL (12.0-16.0); Immature Granulocytes % 0.3 %; Immature Granulocytes Absolute 0.01 #; Lymphocytes # 0.5 10*3/uL (1.4-4.0); Lymphocytes % 15.1 % (21.3-54.2); Mean Corpuscular HGB Conc 29.1 GM/DL (32-36); Mean Corpuscular Volume 91.2 FL (87-102); Mean Platelet Volume 10.5 FL (9.6-12.0); Monocytes % 14.3 % (1.7-12.7); Neutrophils % 56.3 % (38.7-73.9); Platelet Count 190 T/CUMM (130-400); Red Blood Count 3.88 MC/CUMM (3.8-5.5); Red Cell Distribution Width 14.9 % (9.3-17.3); White Blood Count 3.6 T/CUMM (4-12)
[2019-10-14 05:33] LABS: Hematocrit 34.7 VOL% (35.7-47.0)
[2019-10-14 05:45] LABS: Albumin 2.3 G/DL (3.4-5.0); Bilirubin,Total 0.6 MG/DL (0.2-1.0); Calcium 7.7 MG/DL (8.5-10.1); Osmolality,Calculated 270.9 MOS/KG (273-304); Total Protein 5.8 G/DL (6.4-8.3)
[2019-10-14] MEDS: ALPRAZolam 0.25 MG TABLET PO PRN ×3 (05:45→21:23)
[2019-10-14] MEDS: PIPERACILLIN/TAZOBACTAM 3,375 MG in SODIUM CHLORIDE 0.9% 100 ML IV SCH ×3 (05:45→23:46)
[2019-10-14] MEDS: LEVOTHYROXINE 137 MCG TABLET PO SCH (05:45)
[2019-10-14 05:49] LABS: Eosinophils 14 % (0-10); Hypochromasia 1+; Lymphocytes 14 % (20-55); Ovalocytes Slight; Platelet Estimate Adequate; Segmented Neutrophils 55 % (50-85); Total Cells Counted 100
[2019-10-14] MEDS: NON-FORMULARY MEDICATION (Glycopyrrolate-Formoterol [Bevespi Aerosphere] 2 PUFF) INH SCH ×2 (06:09→18:04)
[2019-10-14] MEDS: FUROSEMIDE 20 MG/2 ML VIAL IV SCH (09:41)
[2019-10-14] MEDS: LINACLOTIDE 145 MCG CAPSULE PO SCH (09:42)
[2019-10-14] MEDS: INSULIN REGULAR 100 UNIT/ML SUBCUT SCH ×4 (09:42→21:24)
[2019-10-14] MEDS: CALCIUM (CARBONATE)/VITAMIN D 600 MG-400 UNIT TABLET PO SCH (09:45)
[2019-10-14] MEDS: ROSUVASTATIN 20 MG TABLET PO SCH (09:45)
[2019-10-14] MEDS: ARIPiprazole 10 MG TABLET PO SCH (09:45)
[2019-10-14] MEDS: ASPIRIN CHEW 81 MG TABLET PO SCH (09:45)
[2019-10-14] MEDS: GABAPENTIN 300 MG CAPSULE PO SCH ×3 (09:45→21:24)
[2019-10-14] MEDS: amLODIPine 5 MG TABLET PO SCH (09:46)
[2019-10-14] MEDS: LACTOBACILLUS RHAMNOSUS GG CAPSULE PO SCH ×2 (09:46→21:24)
[2019-10-14] MEDS: PANTOPRAZOLE 40 MG TABLET PO SCH ×2 (09:46→21:24)
[2019-10-14] MEDS: NEBIVOLOL 10 MG TABLET PO SCH (09:46)
[2019-10-14] MEDS: ESCITALOPRAM 10 MG TABLET PO SCH (09:46)
[2019-10-14] MEDS: FERROUS SULFATE 325 MG TABLET PO SCH ×3 (09:46→21:24)
[2019-10-14] MEDS: INDOMETHACIN 25 MG CAPSULE PO SCH ×2 (09:46→21:24)
[2019-10-14] MEDS: MONTELUKAST 10 MG TABLET PO SCH (09:47)
[2019-10-14] MEDS ORDERED: LEVOTHYROXINE 150 MCG TABLET PO SCH (10:45)
[2019-10-14 12:26] LABS: ABG HCO3 29.9 MMOL/L (20-26); ABG Oxygen Saturation 98.5 % (95-100); ABG PH 7.292 (7.35-7.45); Allen Test Positive; Pt O2 Delivery Device Simple Mask
[2019-10-14 12:30] LABS: ABG PCO2 72.1 MM HG (35-48)
[2019-10-14] MEDS: FUROSEMIDE 40 MG/4 ML VIAL IV SCH (18:04)
[2019-10-14] MEDS: PRAMIPEXOLE 1 MG TABLET PO SCH (21:23)
[2019-10-14] MEDS: HydrOXYzine PAMOATE 25 MG CAPSULE PO SCH (21:24)
[2019-10-14] MEDS: AMITRIPTYLINE 25 MG TABLET PO SCH (21:24)
[2019-10-14] MEDS: INSULIN GLARGINE 100 UNIT/ML SUBCUT SCH (21:24)
[2019-10-14] MEDS: ENOXAPARIN 40 MG/0.4 ML SYRINGE SUBCUT SCH (21:25)
[2019-10-14] MEDS: LEVOFLOXACIN INJ 750 MG in PREMIX 1 EACH IV SCH (21:25)
[2019-10-15] MEDS: ALBUTEROL/IPRATROPIUM 3 ML NEB RESP TX SCH ×2 (01:12→08:00)
[2019-10-15] MEDS: NON-FORMULARY MEDICATION (Glycopyrrolate-Formoterol [Bevespi Aerosphere] 2 PUFF) INH SCH (06:30)
[2019-10-15] MEDS: PIPERACILLIN/TAZOBACTAM 3,375 MG in SODIUM CHLORIDE 0.9% 100 ML IV SCH (06:30)
[2019-10-15 07:26] LABS: Calcium 7.9 MG/DL (8.5-10.1); Osmolality,Calculated 268.8 MOS/KG (273-304)
[2019-10-15 07:40] LABS: Basophils # 0.1 10*3/uL (0.0-0.2); Basophils % 1.3 % (0.0-0.8); Eosinophils # 0.5 10*3/uL (0.0-0.87); Eosinophils % 12.6 % (0.00-10.9); Hematocrit 31.7 VOL% (35.7-47.0); Hemoglobin 9.5 GM/DL (12.0-16.0); Immature Granulocytes % 0.3 %; Immature Granulocytes Absolute 0.01 #; Lymphocytes # 0.7 10*3/uL (1.4-4.0); Lymphocytes % 17.7 % (21.3-54.2); Mean Corpuscular Volume 91.4 FL (87-102); Mean Platelet Volume 10.5 FL (9.6-12.0); Monocytes % 15.8 % (1.7-12.7); Neutrophils % 52.3 % (38.7-73.9); Platelet Count 189 T/CUMM (130-400); Red Blood Count 3.47 MC/CUMM (3.8-5.5); Red Cell Distribution Width 14.7 % (9.3-17.3); White Blood Count 3.7 T/CUMM (4-12)
[2019-10-15 08:00] LABS: Eosinophils 10 % (0-10); Hypochromasia 2+; Lymphocytes 12 % (20-55); Platelet Estimate Adequate; Segmented Neutrophils 61 % (50-85); Total Cells Counted 100
[2019-10-15 09:23] LABS: ABG Base Excess 7.1 MMOL/L (-2.5-2.5); ABG Oxygen Saturation 99.6 % (95-100); ABG PH 7.315 (7.35-7.45); ABG TCO2 32.7 MMOL/L (23-27); Pt O2 Delivery Device Ventilator
[2019-10-15 09:24] LABS: ABG PCO2 69.6 MM HG (35-48)
[2019-10-15] MEDS: MONTELUKAST 10 MG TABLET PO SCH (10:25)
[2019-10-15] MEDS: amLODIPine 5 MG TABLET PO SCH (10:25)
[2019-10-15] MEDS: PANTOPRAZOLE 40 MG TABLET PO SCH (10:25)
[2019-10-15] MEDS: MORPHINE 4 MG/1 ML VIAL IV PRN ×2 (10:25→22:33)
[2019-10-15] MEDS: ROSUVASTATIN 20 MG TABLET PO SCH (10:26)
[2019-10-15] MEDS: ESCITALOPRAM 10 MG TABLET PO SCH (10:26)
[2019-10-15] MEDS: INDOMETHACIN 25 MG CAPSULE PO SCH (10:26)
[2019-10-15] MEDS: LACTOBACILLUS RHAMNOSUS GG CAPSULE PO SCH (10:26)
[2019-10-15] MEDS: ASPIRIN CHEW 81 MG TABLET PO SCH (10:26)
[2019-10-15] MEDS: CALCIUM (CARBONATE)/VITAMIN D 600 MG-400 UNIT TABLET PO SCH (10:26)
[2019-10-15] MEDS: NEBIVOLOL 10 MG TABLET PO SCH (10:26)
[2019-10-15] MEDS: FERROUS SULFATE 325 MG TABLET PO SCH (10:26)
[2019-10-15] MEDS: LINACLOTIDE 145 MCG CAPSULE PO SCH (10:27)
[2019-10-15] MEDS: FUROSEMIDE 40 MG/4 ML VIAL IV SCH (10:27)
[2019-10-15] MEDS: ARIPiprazole 10 MG TABLET PO SCH (10:27)
[2019-10-15] MEDS: INSULIN REGULAR 100 UNIT/ML SUBCUT SCH (10:27)
[2019-10-15] MEDS: GABAPENTIN 300 MG CAPSULE PO SCH (10:36)
[2019-10-15 12:22] LABS: Creatinine,Urine Random 20 MG/DL; Total Protein,Urine Random 80 MG/DL
[2019-10-15] MEDS: LORazepam 2 MG/1 ML VIAL IV PRN ×2 (16:58→19:35)
[2019-10-15] MEDS ORDERED: ALBUTEROL/IPRATROPIUM 3 ML NEB RESP TX PRN (17:00)
[2019-10-16] MEDS: LORazepam 2 MG/1 ML VIAL IV PRN ×2 (04:55→14:10)
[2019-10-16] MEDS: MORPHINE 4 MG/1 ML VIAL IV PRN (08:37)
[2019-10-16] MEDS: LINACLOTIDE 145 MCG CAPSULE PO SCH (10:28)
[2019-10-16] MEDS: CALCIUM (CARBONATE)/VITAMIN D 600 MG-400 UNIT TABLET PO SCH (10:36)
[2019-10-16] MEDS: amLODIPine 5 MG TABLET PO SCH (10:36)
[2019-10-16] MEDS: ASPIRIN CHEW 81 MG TABLET PO SCH (10:36)
[2019-10-16] MEDS: ARIPiprazole 10 MG TABLET PO SCH (10:36)
[2019-10-16] MEDS: NEBIVOLOL 10 MG TABLET PO SCH (10:37)
[2019-10-16] MEDS: ROSUVASTATIN 20 MG TABLET PO SCH (10:37)
[2019-10-16] MEDS: ESCITALOPRAM 10 MG TABLET PO SCH (10:37)
[2019-10-16] MEDS: MONTELUKAST 10 MG TABLET PO SCH (10:38)
[2019-10-16] MEDS: ALPRAZolam 0.25 MG TABLET PO PRN (10:46)
[2019-10-16] MEDS: MENTHOL/ZINC OXIDE OINT 71 GM JAR TOP SCH (13:09)
[2019-10-17] MEDS: LORazepam 2 MG/1 ML VIAL IV PRN (00:03)
[2019-10-17 06:00] LABS: Basophils # 0.1 10*3/uL (0.0-0.2); Basophils % 1.5 % (0.0-0.8); Eosinophils # 0.1 10*3/uL (0.0-0.87); Hemoglobin 9.4 GM/DL (12.0-16.0); Immature Granulocytes % 0.6 %; Immature Granulocytes Absolute 0.03 #; Lymphocytes # 0.8 10*3/uL (1.4-4.0); Lymphocytes % 15.8 % (21.3-54.2); Mean Corpuscular HGB Conc 30.3 GM/DL (32-36); Mean Corpuscular Volume 90.6 FL (87-102); Monocytes % 11.4 % (1.7-12.7); Neutrophils % 69.7 % (38.7-73.9); Platelet Count 198 T/CUMM (130-400); Red Blood Count 3.42 MC/CUMM (3.8-5.5); Red Cell Distribution Width 15.3 % (9.3-17.3); White Blood Count 4.8 T/CUMM (4-12)
[2019-10-17 06:12] LABS: Albumin 2.1 G/DL (3.4-5.0); Bilirubin,Total 1.8 MG/DL (0.2-1.0); Calcium 8.1 MG/DL (8.5-10.1); Osmolality,Calculated 295.9 MOS/KG (273-304); Total Protein 5.4 G/DL (6.4-8.3)
[2019-10-17] MEDS: MENTHOL/ZINC OXIDE OINT 71 GM JAR TOP SCH ×3 (06:36→21:26)
[2019-10-17] MEDS ORDERED: SODIUM BICARBONATE 50 MEQ/50 ML SYRINGE IV ONE (07:53)
[2019-10-17] MEDS ORDERED: DEXTROSE 50% 25 GM/50 ML SYRINGE IV ONE (07:53)
[2019-10-17] MEDS ORDERED: CALCIUM CHLORIDE 1,000 MG/10 ML SYRINGE IV ONE (07:53)
[2019-10-17] MEDS ORDERED: EPINEPHrine 1 MG/10 ML SYRINGE ONE (07:53)
[2019-10-17] MEDS ORDERED: SCOPOLAMINE 1.5 MG PATCH TRANSDERM SCH (09:00)
[2019-10-17] MEDS: fentaNYL 50 MCG/HR PATCH TRANSDERM SCH ×2 (10:43→10:49)
[2019-10-17] MEDS: MORPHINE 4 MG/1 ML VIAL IV PRN (10:44)
[2019-10-17] MEDS: LINACLOTIDE 145 MCG CAPSULE PO SCH (11:38)
[2019-10-18] MEDS: MENTHOL/ZINC OXIDE OINT 71 GM JAR TOP SCH (08:26)
[2019-10-18 12:11] VITALS: BP 84/30
== END 2019-10-18 14:31 | disposition hospice, inpatient (51) | DRG 208 ==
LOC: EDUNIT# → EDBD → N.ED 14:31 → N.EDINP 14:31 → N.TELEN 18:27 → SUATTDRO 10-11 09:48 → N.ICU 10-15 08:10 → N.4E 10-16 14:14
PROVIDERS: ADMIT Family Medicine; ATTEND Internal Medicine
PROC: IRTHORA (2019-10-10 09:52)

== ENCOUNTER 2019-10-18 14:41 | Inpatient (IN) ==
[2019-10-18] MEDS ORDERED: MORPHINE 4 MG/1 ML VIAL IV PRN (15:33)
[2019-10-18] MEDS ORDERED: LORazepam 2 MG/1 ML VIAL IV PRN (15:39)
[2019-10-18] MEDS ORDERED: ACETAMINOPHEN 650 MG SUPP RECTAL PRN (15:46)
== END 2019-10-18 23:52 | disposition expired | DRG 951 ==
LOC: N.4E 14:41
PROVIDERS: ADMIT Internal Medicine; ATTEND Internal Medicine